=== PATIENT | male | born 1975 | race Caucasian/White ===

== ENCOUNTER 2019-02-27 01:43 | Inpatient (IN) ==
[2019-02-27] MEDS ORDERED: LORazepam 2 MG/4 ML VIAL IV STA (01:59)
[2019-02-27] MEDS ORDERED: ONDANSETRON INJ 2 MG/ML 2 ML VIAL ONE (02:55)
[2019-02-27] MEDS ORDERED: HYDROmorphone INJ 1 MG/ML SYRINGE ONE ×2 (02:55→04:32)
[2019-02-27] MEDS ORDERED: HYDROmorphone INJ 0.5 MG/0.5 ML SYR ONE (03:32)
[2019-02-27 04:01] LABS: Alanine Aminotransferase 86 U/L (12-78); Albumin Globulin Ratio 0.9 (0.9-2); Albumin Level 3.8 gm/dl (3.4-5.0); Alkaline Phosphatase 86 U/L (45-117); Aspartate Aminotransferase 59 U/L (15-37); BUN Creatinine Ratio 13.4 (10-20); Bilirubin,Total 0.4 mg/dl (0.2-1); Blood Urea Nitrogen 14 mg/dl (7-18); Calcium 8.7 mg/dl (8.5-10.1); Carbon Dioxide 28 mmol/L (21-32); Chloride 104 mmol/L (98-107); Creatinine Clr Calc Pharmacy 118.8 ml/min; Est GFR (African American) 100.7; Est GFR (Non-African American) 86.9; Globulin 4.4 gm/dl (2.5-4.0); Glucose 124 mg/dl (70-99); Potassium 3.7 mmol/L (3.5-5.1); Sodium 139 mmol/L (136-145); Total Protein 8.2 gm/dl (6.4-8.2); Troponin I < 0.015 ng/ml (0-0.045)
[2019-02-27 04:02] LABS: Basophils # (auto) 0.02 K/uL (0-0.2); Basophils % (auto) 0.2 %; Eosinophils # (auto) 0.38 K/uL (0-0.5); Hematocrit (blood only) 46.9 % (42-52); Hemoglobin 15.6 g/dL (14.0-18.0); Immature Granulocytes % (auto) 0.8 %; Lipase 38645 U/L (73-393); Lymphocytes # (auto) 4.05 K/uL (1.2-3.4); Lymphocytes % (auto) 31.7 %; Mean Corpuscular Hemoglobin 29.1 pg (25-34); Mean Corpuscular Hgb Conc 33.3 g/dL (32-36); Mean Corpuscular Volume 87.5 fL (80-100); Monocytes # (auto) 0.85 K/uL (0.11-0.59); Monocytes % (auto) 6.7 %; Neutrophils # (auto) 7.38 K/uL (1.4-6.5); Neutrophils % (auto) 57.6 %; Platelet Count 239 K/uL (130-400); RDW Coefficient of Variation 13.5 % (11.5-14.5); RDW Standard Deviation 43.2 fL (36.4-46.3); Red Blood Count 5.36 M/uL (4.7-6.1); White Blood Count 12.78 K/uL (4.8-10.8)
[2019-02-27] MEDS ORDERED: HYDROmorphone INJ 0.5 MG/0.5 ML SYR IV STA (04:29)
[2019-02-27] MEDS ORDERED: HYDROmorphone INJ 1 MG/ML SYRINGE IV STA (04:30)
[2019-02-27] MEDS ORDERED: OPTIRAY 320 125ml IV PRN (04:44)
[2019-02-27] MEDS ORDERED: ACETAMINOPHEN 325 MG TAB PO PRN (06:08)
[2019-02-27] MEDS ORDERED: HYDROmorphone INJ 0.5 MG/0.5 ML SYR IV PRN (06:08)
--- NOTE | 2019-02-27 06:09 | History and Physical Report ---
DATE OF ADMISSION: 02/27/2019 CHIEF COMPLAINT: Abdominal pain radiating to back. 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 As per the ER Dissection studies were done was done which was unremarkable except showing gallstones and his lipase came elevated at 38,000. He received Dilaudid and 2 mg of IV Ativan. Currently, somewhat sleepy, but still complains of significant abdominal pain. Had 1 episode of vomiting in the ER. He says he is not a heavy drinker, drinks like 1 or 2 drinks probably once a week, sometimes not. Quit smoking a few years ago. Never had this kind of pain in the past. Hemodynamics are stable. Denies any headache, no dizziness, no blurred visions, no earache, no runny nose, no sore throat, no difficulty swallowing, no chest pain, was short of breath when he was having pain. No cough, no fever, no chills. Otherwise sleeps okay. No recent weight gain, weight loss. Normal bowel and bladder movements. No hematuria or burning micturition, no hematochezia. No swelling in the legs, no rash. Otherwise, is active. ALLERGIES: No known drug allergies. PAST MEDICAL HISTORY: As mentioned above. PAST SURGICAL HISTORY: Revised horizontal eye muscle. MEDICATIONS: Currently none. FAMILY HISTORY: Significant for father had brain cancer, mother has bipolar disorder, aunt has colon cancer, father has pancreatic cancer, paternal grandmother had brain cancer, uncle has prostate cancer, another uncle has malignant melanoma, paternal grandmother has type 2 diabetes, and maternal grandfather has [place]. SOCIAL HISTORY: . Former smoker, quit smoking few years ago. Alcohol, 1 or 2 drinks over the weekends. No drug use. REVIEW OF SYSTEMS: As per HPI. Rest of the review of systems negative. PHYSICAL EXAMINATION: GENERAL: The patient is obese. In pain. VITAL SIGNS: Temperature 36.5, pulse 77, respiratory rate 22, blood pressure 167/105, oxygen 97% on room air. HEENT: No pallor, no icterus. Pupils are equal, round, and reactive to light. NECK: No JVD, no neck masses, no carotid bruits. CARDIOVASCULAR: S1, S2 heard, regular rate and rhythm, no murmur, no gallop. RESPIRATORY SYSTEM: Normal AP diameter. No accessory muscle use. No wheezing, no crackles. ABDOMEN: Soft, bowel sounds present. Diffuse abdominal tenderness, more in the epigastric region, mild guarding. No rigidity, no distention, no rebound tenderness. CENTRAL NERVOUS SYSTEM: Cranial nerves II-XII grossly intact. Nonfocal. EXTREMITIES: No edema, no erythema. LABORATORY DATA: WBC 12.7, hemoglobin 15.6, hematocrit 46.9, platelets 239. Sodium 139, potassium 3.7, chloride 104, bicarbonate 28, BUN 14, creatinine 1.04, serum glucose 124, calcium 8.7, total bilirubin 0.4, AST 59, ALT 86, alkaline phosphatase 86. Troponin I less than 0.015. Lipase 38,645. IMAGING DATA: Chest x-ray, no acute process seen. CAT scan results pending. EKG NSR with rate of &(. No significant change from previous EKG. ASSESSMENT AND PLAN: This is a 43-year-old male who presents with upper abdomen and lower chest pain radiating to the back and found to have an acute pancreatitis. 1. Abdominal pain, and lower chest pain radiating to the back, acute pancreatitis with elevated lipase at 38,000. Some gallstones in the CAT scan, we will wait for official report. We will also order gallbladder ultrasound. LFTs are okay. The patient is afebrile. Possibly gallstone pancreatitis. We will place him on IV aggressive fluids LR@200ml per hour and IV Dilaudid 0.5 mg p.o. q. 3 hours p.r.n., n.p.o. except meds and consult GI and general surgery in a.m. Monitor in the medical floor. 2. History of generalized anxiety disorder. The patient takes Ativan once or twice a week. Received 2 mg of Ativan in the ER. Will place him on Ativan PO p.r.n. 3. Deep venous thrombosis prophylaxis, sequential compression devices. DISPOSITION: Admit to medical floor. Level 1 full code. MTDD
--- NOTE | 2019-02-27 06:18 | Emergency Department Note ---
Entered by Aleksandar Coon acting as a scribe for Priscilla Peter DO History of Present Illness General Chief complaint: Chest Pain Stated complaint: CHEST PAIN, SOB Time Seen by Provider: 02/27/19 01:47 Source: patient History of Present Illness Onset (ago): hour(s) 1 Location: chest Pain Consistency: + constant Maximum Pain Intensity: 9 Associated symptoms: + other (Positive for SOB, upper abdominal pain, and roxanna sea. Negative for diarrhea and constipation.) The patient is a 43 year old male who presents to the emergency department with complaints of constant chest pain beginning an hour ago. The patient states that he has a history of anxiety. He notes that he developed chest pain an hour ago that woke him up. He reports that he was feeling fine before going to sleep. The patient states that he is also having upper abdominal pain that feels as though someone is pulling a belt tightly around him. He also complains of nausea and SOB. He notes that he was afraid to have a bowel movement this morning. He denies any diarrhea and constipation. He reports that he is experiencing more stress recently, and he states that he takes Ativan as needed. He notes that his mom had a heart attack a year ago. He reports that he does not use alcohol. Home Medications Home Medications Medication Instructions Recorded Confirmed Type lorazepam 0.5 mg PO BID PRN 02/27/19 02/27/19 History Allergies Allergy/AdvReac Type Severity Reaction Status Date / Time No Known Allergies Allergy Unverified 02/27/19 04:42 Past Med/Surg History Medical History Left arm pain (Acute) Left shoulder pain (Acute) Anxiety Family History Other Heart disease Myocardial infarction Social History Preferred Language: Malaysian Communication Ability: Effective Communication Ability Comment: sedated after iv pain meds in ed [place] Required: No Beliefs That Will Affect Care: None Current Living Situation: Spouse Other Information That Helps Us Care for You: No Feels Safe at Home: Yes Safety Concerns: Feels Safe At This Time Smoking Status: Current some day smoker Tobacco Type: cigarettes ; Cigarettes Per Day: 0.25 ; Do You Dip or Chew Tobacco: No ; Tobacco Cessation Education Requested by Patient: No Hx Alcohol Use: Yes Review of Systems See HPI for pertinent positives & negatives. and A total of 10 systems reviewed and were otherwise negative Physical Exam Vital Signs Vital Signs - 24 hr 02/27/19 01:44 02/27/19 01:56 02/27/19 01:59 Temperature 36.5 C Temperature Source Oral Sepsis Recent Fever Within 48 Hours No Sepsis Action Taken by Nursing No Action Required Pulse Rate 77 76 Pulse Rate from SpO2 Sensor 76 Pulse Rhythm Regular Pulse Strength Normal Respiratory Rate 22 15 Respiratory Effort / Characteristics Non-Labored Spontaneous Respiratory Depth Normal Respiratory Pattern Regular Blood Pressure 167/105 H Blood Pressure Mean 125 Blood Pressure Position Sitting Pulse Oximetry 98 97 97 Oxygen Delivery Method Room Air Room Air 02/27/19 02:00 02/27/19 02:15 02/27/19 02:26 Temperature Temperature Source Sepsis Recent Fever Within 48 Hours Sepsis Action Taken by Nursing Pulse Rate 76 74 Pulse Rate from SpO2 Sensor 76 Pulse Rhythm Pulse Strength Respiratory Rate 11 L 13 Respiratory Effort / Characteristics Respiratory Depth Respiratory Pattern Blood Pressure 146/97 H Blood Pressure Mean 113 Blood Pressure Position Pulse Oximetry 98 Oxygen Delivery Method 02/27/19 02:55 02/27/19 03:10 02/27/19 03:15 Temperature Temperature Source Sepsis Recent Fever Within 48 Hours Sepsis Action Taken by Nursing Pulse Rate 82 75 83 Pulse Rate from SpO2 Sensor 81 76 84 Pulse Rhythm Pulse Strength Respiratory Rate 18 8 L 14 Respiratory Effort / Characteristics Respiratory Depth Respiratory Pattern Blood Pressure 199/145 H 191/124 H 178/132 H Blood Pressure Mean 163 146 147 Blood Pressure Position Pulse Oximetry 95 90 97 Oxygen Delivery Method 02/27/19 03:31 02/27/19 03:46 02/27/19 04:37 Temperature Temperature Source Sepsis Recent Fever Within 48 Hours Sepsis Action Taken by Nursing Pulse Rate 73 73 62 Pulse Rate from SpO2 Sensor 74 71 65 Pulse Rhythm Pulse Strength Respiratory Rate 17 17 15 Respiratory Effort / Characteristics Respiratory Depth Respiratory Pattern Blood Pressure 189/109 H 124/88 142/108 H Blood Pressure Mean 135 100 119 Blood Pressure Position Pulse Oximetry 95 95 94 Oxygen Delivery Method General: Extremely anxious. HEENT: Head - normocephalic and atraumatic Pupils are equal, round, and reactive to light. Extraocular eye muscles are intact, and sclera are anicteric. Nose - moist nasal mucosa without discharge. Mouth - moist buccal mucosa. Oropharynx is nonerythematous and there is no tonsillar exudate or edema noted. Neck: Supple; no JVD, nuchal rigidity, cervical lymphadenopathy, or auscultated bruits. Heart: Regular rate and rhythm. There is a normal S1 and S2 with no murmurs, clicks, or gallops appreciated. Lungs: Clear to auscultation bilaterally with no wheezes, rales, or rhonchi. Abdomen: Soft, mild tenderness to palpation in the epigastrium, nondistended, w ith good bowel sounds. There are no palpable pulsatile masses or hepatosplenomegaly. There is no guarding, rigidity, or rebound noted. Extremities: No evidence of cyanosis, clubbing, or edema. There are easily palpable peripheral pulses. Skin: warm and dry with good turgor and no rashes. Course 0150: The patient was evaluated in room B10. A complete history and physical examination were performed. Nursing notes and previous electronic medical records were reviewed. IV lock was established and labs were drawn as above. 0201: The patient was quite anxious on physical exam. Lorazepam 2mg in 4 mls @ 4 mls/min IV 0227: I reevaluated and updated the patient. He is having severe epigastric pain that is radiating through to his back. He is also sweating. A second IV lock was initiated. The patient will go emergently for CT scan of the chest, abdomen, and pelvis to rule out aortic dissection. 0252: The patient vomited while in CT. He is now nauseated and still having epigastric pain. 0307: Hydromorphone HCl 1mg IV, Ondansetron 4mg IV 0317: I rechecked the patient. He is sleeping. He is hemodynamically stable. I reviewed the results of the CT scan laboratory studies with the patient's . 0324: Upon reevaluation, the patient is stable. I discussed the findings and the treatment plan with the patient. He expresses agreement and understanding. I spoke with Dr. Ortiz of the [facility]. The patient will be evaluated for further management. The patient requested additional IV analgesia. 0326: I reevaluated and updated the patient. He is having more pain. He is getting another dose of Dilaudid. 0332: Hydromorphone HCl 0.5mg IV 0439: Hydromorphone HCl 1mg IV Consultations Consultation #1: I [facility] the [facility] He will evaluate the patient for further management. Time: 03:24 Administered Medications Discontinued Medications Hydromorphone HCl (Dilaudid) Confirm Administered Dose 1 mg .ROUTE .STK-MED ONE Stop: 02/27/19 02:56 Last Admin: 02/27/19 06:13 Dose: Not Given Documented by: [id number] Hydromorphone HCl (Dilaudid) Confirm Administered Dose 0.5 mg .ROUTE .STK-MED ONE Stop: 02/27/19 03:33 Last Admin: 02/27/19 06:13 Dose: Not Given Documented by: [id number] Hydromorphone HCl (Dilaudid) 0.5 mg IV NOW STA Stop: 02/27/19 04:30 Last Admin: 02/27/19 04:31 Dose: Not Given Documented by: [id number] Hydromorphone HCl (Dilaudid) 1 mg IV NOW STA Stop: 02/27/19 04:31 Last Admin: 02/27/19 04:39 Dose: 0.5 mg Documented by: [id number] Hydromorphone HCl (Dilaudid) Confirm Administered Dose 1 mg .ROUTE .STK-MED ONE Stop: 02/27/19 04:33 Last Admin: 02/27/19 05:12 Dose: Not Given Documented by: [id number] Lorazepam (Ativan) 2 mg in 4 mls @ 4 mls/min IV NOW STA Stop: 02/27/19 02:00 Last Admin: 02/27/19 02:01 Dose: 4 mls/min Documented by: [id number] Ioversol (Optiray 320 125ml) 125 ml IV ONCE PRN PRN Reason: Interaction Checking Stop: 03/03/19 04:43 Last Admin: 02/27/19 04:44 Dose: 119 ml Documented by: [id number] Ondansetron HCl (Zofran) Confirm Administered Dose 4 mg .ROUTE .STK-MED ONE Stop: 02/27/19 02:56 Last Admin: 02/27/19 06:13 Dose: Not Given Documented by: [id number] Medical Decision Making Differential Diagnosis Differential diagnoses include: anxiety, acute coronary syndrome, aortic dissection, and pancreatitis. Medical Records Attestation: I reviewed the patient's medical records. Home Medications Current Medication List: was personally reviewed by me Laboratory Data Attestation: I reviewed the patient's lab results. Result diagrams: 02/27/19 02:05 02/27/19 02:05 Lab Results 02/27/19 02/27/19 Range/Units 02:05 02:05 WBC 12.78 H (4.8-10.8) K/uL RBC 5.36 (4.7-6.1) M/uL Hgb 15.6 (14.0-18.0) g/dL Hct 46.9 (42-52) % MCV 87.5 (80-100) fL MCH 29.1 (25-34) pg MCHC 33.3 (32-36) g/dL RDW Std Deviation 43.2 (36.4-46.3) fL RDW Coeff of Jose 13.5 (11.5-14.5) % Plt Count 239 (130-400) K/uL MPV 10.0 (7.4-10.4) fL Immature Gran % (Auto) 0.8 % Neut % (Auto) 57.6 % Lymph % (Auto) 31.7 % [place] % (Auto) 6.7 % Eos % (Auto) 3.0 % Baso % (Auto) 0.2 % Immature Gran # (Auto) 0.10 H (0.00-0.02) K/uL Neut # (Auto) 7.38 H (1.4-6.5) K/uL Lymph # (Auto) 4.05 H (1.2-3.4) K/uL [place] # (Auto) 0.85 H (0.11-0.59) K/uL Eos # (Auto) 0.38 (0-0.5) K/uL Baso # (Auto) 0.02 (0-0.2) K/uL Sodium 139 (136-145) mmol/L Potassium 3.7 (3.5-5.1) mmol/L Chloride 104 (98-107) mmol/L Carbon Dioxide 28 (21-32) mmol/L Anion Gap 7.0 (3-11) BUN 14 (7-18) mg/dl Creatinine 1.04 (0.6-1.4) mg/dl Est Cr Clr Drug Dosing 118.8 ml/min Est GFR ( Amer) 100.7 Est GFR (Non-Af Amer) 86.9 BUN/Creatinine Ratio 13.4 (10-20) Glucose 124 H (70-99) mg/dl Calcium 8.7 (8.5-10.1) mg/dl Total Bilirubin 0.4 (0.2-1) mg/dl AST 59 H (15-37) U/L ALT 86 H (12-78) U/L Alkaline Phosphatase 86 (45-117) U/L Troponin I < 0.015 (0-0.045) ng/ml Total Protein 8.2 (6.4-8.2) gm/dl Albumin 3.8 (3.4-5.0) gm/dl Globulin 4.4 H (2.5-4.0) gm/dl Albumin/Globulin Ratio 0.9 (0.9-2) Lipase 72949 H (73-393) U/L Imaging Data Attestation: I personally reviewed and interpreted this imaging study as follows: My Impression: CHEST X-RAY: Narrow mediastinum. No cardiomegaly. No pulmonary findings. Radiologist's Impression: Radiology results as stated below per my review and the radiologist's interpretation: CTA CHEST: Cholelithiasis. No definite acute cholecystitis. No biliary ductal dilation. No appendicitis, colitis, diverticulitis, or bowel obstruction. No free air or free fluid, Pancreas and kidneys are unremarkable. Radiologist: Darrell Stack MD. CTA ABDOMEN & PELVIS WWO Contrast: No acute or inflammatory disease or bowel obstruction. No appendicitis, inflammatory changes of bowel or bowel obstruction. No free fluid. No free air. Aorta, liver, spleen, pancreas, gallbladder, and kidneys are unremarkable. Radiologist: Darrell Stack MD. ECG Data Attestation: I personally reviewed and interpreted this ECG as follows: Indication: chest pain Rate (beats per minute): 79 Comparison ECG Date: from (01/13/2014) Change: no significant change Additional Comments: No ischemia, no ectopy. Blood Pressure Blood Pressure Findings: Elevated blood pressure Blood Pressure Disposition: further management by hospitalist DEVIKA Marie The patient is a 43 year old male who presents to the emergency department with complaints of constant chest pain/epigastric pain beginning an hour ago. The patient has a history of anxiety and began to hyperventilate while experiencing some chest and epigastric discomfort. The patient had a normal-appearing EKG and negative troponin. However, he continued to complain of epigastric discomfort that seem to get worse and radiate through to his back. He was sent for CT scan of the chest and abdomen/pelvis. To rule out aortic dissection. This was negative for dissection but there was gallstones noted. The patient had a lipase greater than 30,000. His presentation seems consistent with acute gallstone pancreatitis. The patient's pain was controlled with IV Dilaudid. I discussed the case with the hospitalist and they will evaluate for further management. Impression & Plan Pancreatitis, Chest pain Discharge Plan Visit Data *Final* Discharge Date/Time: 02/27/19 05:46 Chief Complaint: Chest Pain Stated Complaint: CHEST PAIN, SOB ED Provider: Priscilla Peter Discharge Problem: Pancreatitis, Chest pain Patient Disposition: Admitted As Inpatient Discharge Instructions Interventions: ED Discharge Assessment Last Done: 02/27/19 05:46 The scribe's documentation has been prepared under my direction and personally reviewed by me in its entirety. I confirm that the note above accurately reflect s all work, treatment, procedures, and medical decision making performed by me.
[2019-02-27] MEDS: LACTATED RINGER'S 1,000 ML IV SCH ×4 (06:30→23:28)
--- NOTE | 2019-02-27 07:27 | XRay Report ---
XR chest 1V portable HISTORY: Atypical Chest Pain COMPARISON: None. FINDINGS: The lungs are clear. Cardiac silhouette is normal in size. No pleural effusions. No pneumot horax. IMPRESSION: No acute process. Electronically signed by: Danyel Ferro M.D. 02/27/2019 7:26 AM
--- NOTE | 2019-02-27 07:58 | CT Scan Report ---
CT ANGIOGRAPHY THE CHEST WITHOUT AND WITH CONTRAST CLINICAL HISTORY: Chest and abdominal pain. Possible aortic dissection. COMPARISON STUDY: Chest x-ray dated 02/27/2019 TECHNIQUE: Unenhanced images were initially obtained through the thorax. Following the IV administrat ion of 119 mL of Optiray-320, CT angiography of the thorax was performed from the thoracic inlet to t he lung bases. Images are reviewed in the axial, sagittal, and coronal planes. IV contrast was admini stered without complication. A dose lowering technique was utilized adhering to the principles of AL JON. MIP images were acquired. CT DOSE: FINDINGS: Thyroid: Imaged portions of the thyroid gland are normal in appearance. Thoracic aorta: There is no evidence of acute thoracic aortic hematoma. There is no evidence of aorti c aneurysm or dissection. Pulmonary vasculature: There are no pulmonary artery filling defects to indicate acute pulmonary embo lism. HEART: The heart is normal in size and configuration, without pericardial effusion. Lungs and pleural spaces: There are no pleural effusions. There is no pneumothorax. There are depende nt atelectatic changes. There are no airspace consolidation suspicious for pneumonia. Mediastinum: There is no evidence of pathologic mediastinal lymphadenopathy. Amisha: There is no evidence of pathologic hilar adenopathy. Axilla: There is no evidence of pathologic axillary lymphadenopathy. Upper abdomen: Partially visualized upper abdominal viscera is within normal limits. Skeletal structures: There are no lytic or blastic osseous lesions. IMPRESSION: 1. No evidence of thoracic aortic aneurysm or dissection 2. No evidence of acute pulmonary embolism 3. No evidence of focal pulmonary consolidation Electronically signed by: Michael Restrepo M.D. 02/27/2019 7:57 AM
--- NOTE | 2019-02-27 08:09 | CT Scan Report ---
CT angio abd pelvis wo/w con CT DOSE: CLINICAL HISTORY: Severe abdominal pain. Possible aortic dissection. TECHNIQUE: Unenhanced images were obtained through the abdomen and pelvis. CT angiography was then pe rformed a dynamic helical fashion during intravenous administration of 119 cc of Optiray 320. MIP michael ges were acquired. A dose lowering technique was utilized adhering to the principles of ALARA. COMPARISON STUDY: None. FINDINGS: Visualized portions of the lung bases are unremarkable. No hepatic masses are visualized. There is cholelithiasis. There is equivocal pericholecystic edema. Clinical correlation regards to ac keren cholecystitis is recommended. There is a cystic structure adjacent the gallbladder neck and media l to the common bile duct. This could represent a dilated cystic duct or choledochocyst. No pancreatic masses are visualized. There is minimal peripancreatic stranding. Clinical correlation regards to acute pancreatitis is recommended. No splenic masses are visualized. Neither adrenal gland is pathologically enlarged. No renal masses are visualized in this arterial phase study. There are no transition zones indicate bowel obstruction. There is colonic diverticulosis. There is n o acute diverticulitis. There is no evidence of acute appendicitis. There is no evidence for abdominal aortic aneurysm or dissection. 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 There is no evidence for superior is enteric artery stenosis. There is no evidence for renal artery s tenosis. There is no evidence for iliac artery stenosis. The inferior mesenteric artery is patent. There are small fat-containing inguinal hernias. IMPRESSION: 1. No evidence of abdominal aortic aneurysm or dissection 2. 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 Cholelithiasis and minimal pericholecystic infiltration. Clinical correlation regards to acute cho lecystitis is recommended 4. Subtle peripancreatic infiltration. Clinical correlation regards to acute pancreatitis is recommen ded 5. Cystic structure located adjacent to the gallbladder neck and common bile duct. Likely diagnostic considerations include a dilated cystic duct or choledochal cyst. 7. No evidence of bowel obstruction. No evidence of free air. 6. This report will be called to the floor given the discrepancies when compared with the preliminary interpretation. Electronically signed by: Michael Restrepo M.D. 02/27/2019 8:07 AM
--- NOTE | 2019-02-27 08:30 | Surgery Consultation ---
Date of Consultation February 27, 2019 Assessment & Plan (1) Pancreatitis: Likely biliary. LFTs essentially normal, will continue to trend. Eventual lap moriah when pancreatitis resolves. Supervising Physician Co-Signing Physician Notes 43-year-old male admitted with gallstone pancreatitis. He is feeling a little bit better today than he did this morning. No prior episodes. Of note on a CT scan and ultrasound there is concern for possible choledochal cyst. MRCP is pending. At this point we will continue IV fluids and n.p.o. We would recommend cholecystectomy during this hospital stay or in short interval, however if it is determined that he does have a choledochal cyst he likely needs an ERCP with brushings and would possibly need hepatobiliary surgery consult. Surgery will follow. History of Present Illness Attending Physician: Rigo Vincent MD History of Present Illness 43 y/o male awoke at midnight with severe epigastric pain, nausea, mid-scapular pain. Feels bloated, no vomiting. No history of biliary disease. Has 1-2 beers per week. Allergies Allergy/AdvReac Type Severity Reaction Status Date / Time No Known Allergies Allergy Unverified 02/27/19 04:42 Home Medications Home Medications Medication Instructions Recorded Confirmed Type lorazepam 0.5 mg PO BID PRN 02/27/19 02/27/19 History Patient History Medical History Left arm pain (Acute) Left shoulder pain (Acute) Anxiety Family History Other Heart disease Myocardial infarction Social History Preferred Language: Mexican Communication Ability: Effective Communication Ability Comment: sedated after iv pain meds in ed Costumer Required: No Beliefs That Will Affect Care: None Current Living Situation: Spouse Other Information That Helps Us Care for You: No Feels Safe at Home: Yes Safety Concerns: Feels Safe At This Time Smoking Status: Current some day smoker Tobacco Type: cigarettes ; Cigarettes Per Day: 0.25 ; Do You Dip or Chew Tobacco: No ; Tobacco Cessation Education Requested by Patient: No Hx Alcohol Use: Yes Review of Systems Constitutional: no fever and no chills Gastrointestinal: + abdominal pain, + bloating and + nausea; no vomiting Physical Exam Constitutional: WD/WN, vitals as above Respiratory: normal respiratory effort, lungs clear to auscultation Cardiovascular: RRR, no murmur, no edema Gastrointestinal (Abdomen): Inspection/Auscultation: + abdomen distended Percussion/Palpation: + abdomen tender (epigastric) and abdomen soft Results & Data Vital Signs (Past 12 Hours) Vital Signs Temp Pulse Pulse Resp BP BP Pulse Ox 02/27/19 07:30 36.9 C 82 16 152/101 H 97 02/27/19 05:57 36.7 C 71 16 176/114 H 95 02/27/19 05:46 66 18 183/110 H 92 02/27/19 04:45 63 16 150/111 H 98 02/27/19 04:37 62 15 142/108 H 94 02/27/19 03:46 73 17 124/88 95 02/27/19 03:31 73 17 189/109 H 95 02/27/19 03:15 83 14 178/132 H 97 02/27/19 03:10 75 8 L 191/124 H 90 02/27/19 02:55 82 18 199/145 H 95 02/27/19 02:26 146/97 H 02/27/19 02:15 74 13 02/27/19 02:00 76 11 L 98 02/27/19 01:59 76 15 97 02/27/19 01:56 97 02/27/19 01:44 36.5 C 77 22 167/105 H 98 PG Care Time/CCT Total # of Minutes Spent Total Time Spent with Patient: Total time spent is greater than 50% in coordination of care (as documented) at patient's floor/unit and/or counseling patient: (1) Pancreatitis Acute pancreatitis complication: unspecified Chronicity: acute Pancreatitis type: unspecified pancreatitis type Qualified Code(s): K85.90 - Acute pancreati tis without necrosis or infection, unspecified
[2019-02-27 08:54] LABS: Albumin Globulin Ratio 0.9 (0.9-2); Albumin Level 4.2 gm/dl (3.4-5.0); BUN Creatinine Ratio 11.3 (10-20); Bilirubin,Total 0.5 mg/dl (0.2-1); Calcium 9.1 mg/dl (8.5-10.1); Creatinine Clr Calc Pharmacy 114.9 ml/min; Est GFR (African American) 97.3; Globulin 4.4 gm/dl (2.5-4.0); Total Protein 8.6 gm/dl (6.4-8.2)
[2019-02-27] MEDS: HYDROmorphone INJ 1 MG/ML SYRINGE IV PRN ×4 (09:10→22:11)
[2019-02-27] MEDS ORDERED: INFLUENZA ADMINISTRATION CHARGE ONE (09:30)
[2019-02-27] MEDS ORDERED: INFLUENZA VIRUS QUAD VACCINE 0.5 ML SYR IM ONE (09:30)
--- NOTE | 2019-02-27 09:40 | Gastrointestinal Consultation ---
Date of Consultation February 27, 2019 Supervising Physician Co-Signing Physician Notes Attending attestation-late entry I have seen, examined this patient, and agree with the findings and above by our mid-level provider SEEMA Jacobson, with the following additions -Likely gs pancreatitis, MRI -IVF at least at 250cc/hr -IV pain control -Surgery Consult History of Present Illness Reason for Consultation: Mr. Vern Reeder is a 43 yr old male pt of Dr. 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 GI is consulted for pancreatitis. Mr. Reeder reports a sudden onset of upper abdomen/pain waking him from sleep last night. With this, he had nausea, vomiting and chills. He denies any jaundice, icterus, pruritis, dark urine. He rarely drinks alcohol (about 2/month) and is not a smoker. He denies any similar previous episodes of pain. On arrival, Lipase was elevated at 38k and transaminases were elevated ALT 86 AST 59 Bili and alk phos remain normal. CT on arrival with gallstones, mild pericholecystic fluid, subtle peripancreatic infiltration. The CT was done He The pain continues, improved with narcotic IVs but returns to severe at that end of the dosing interval. Attending Physician: Rigo Vincent MD Allergies Allergy/AdvReac Type Severity Reaction Status Date / Time No Known Allergies Allergy Unverified 02/27/19 04:42 Home Medications Home Medications Medication Instructions Recorded Confirmed Type lorazepam 0.5 mg PO BID PRN 02/27/19 02/27/19 History Patient History Medical History Left arm pain (Acute) Left shoulder pain (Acute) Anxiety Family History Other Heart disease Myocardial infarction Social History Preferred Language: Malawian Communication Ability: Effective Communication Ability Comment: sedated after iv pain meds in ed Slot Manager Required: No Beliefs That Will Affect Care: None Current Living Situation: Spouse Other Information That Helps Us Care for You: No Feels Safe at Home: Yes Safety Concerns: Feels Safe At This Time Smoking Status: Current some day smoker Tobacco Type: cigarettes ; Cigarettes Per Day: 0.25 ; Do You Dip or Chew Tobacco: No ; Tobacco Cessation Education Requested by Patient: No Hx Alcohol Use: Yes Review of Systems Constitutional: + chills and + sweats; no fever and no weakness Eyes: no problem reported Ear, Nose, Mouth, Throat: no problem reported Respiratory: no cough, no dyspnea and no wheezing Cardiovascular: no chest pain, no palpitations, no syncope and no edema Gastrointestinal: + abdominal pain, + nausea and + vomiting Musculoskeletal: + back pain Integumentary: no change in skin color Neurologic: no gait abnormality, no unsteadiness and no falls Psychiatric: + anxiety (may have had a panic attack with the pain last night); no depression Endocrine: no fatigue, no polydipsia, no polyphagia and no polyuria Hematologic / Lymphatic: no easy bleeding and no easy bruising Allergy / Immunological: no GI upset with certain foods Physical Exam Constitutional: WD/WN, vitals as above Eyes: PERRL, conjunctivae normal, anicteric sclerae ENMT: external ear and nose normal, oropharynx normal Neck: trachea midline, no thyromegaly Respiratory: normal respiratory effort, lungs clear to auscultation Cardiovascular: RRR, no murmur, no edema Gastrointestinal (Abdomen): Inspection/Auscultation: + hypoactive bowel sounds Percussion/Palpation: + abdomen tender (very, over the upper abdomen); abdomen not rigid and abdomen not firm Musculoskeletal: no cyanosis or clubbing, extremities motor strength 5/5 Skin: no rashes, warm and dry no jaundice Neurologic: PERRL, EOMI, accommodation nl, no face palsy, no dysarthria Psychiatric: A+Ox3, euthymic affect Lymphatic: no cervical or axillary lymphadenopathy Results & Data Vital Signs (Past 12 Hours) Vital Signs Temp Pulse Pulse Resp BP BP Pulse Ox 02/27/19 07:30 36.9 C 82 16 152/101 H 97 02/27/19 05:57 36.7 C 71 16 176/114 H 95 02/27/19 05:46 66 18 183/110 H 92 02/27/19 04:45 63 16 150/111 H 98 02/27/19 04:37 62 15 142/108 H 94 02/27/19 03:46 73 17 124/88 95 02/27/19 03:31 73 17 189/109 H 95 02/27/19 03:15 83 14 178/132 H 97 02/27/19 03:10 75 8 L 191/124 H 90 02/27/19 02:55 82 18 199/145 H 95 02/27/19 02:26 146/97 H 02/27/19 02:15 74 13 02/27/19 02:00 76 11 L 98 02/27/19 01:59 76 15 97 02/27/19 01:56 97 02/27/19 01:44 36.5 C 77 22 167/105 H 98 Laboratory Results Hb 15, Hct 46, Cr 1.07 UA 1. Stone filled gallbladder with borderline gallbladder wall thickening 2. No evidence of ductal dilatation 3. Nondiagnostic evaluation the pancreas 4. Nonspecific 22 x 18 x 16 mm cystic structure adjacent to the gallbladder neck. This corresponds to the cystic lesion visualized on CT scanning. A choledochal cyst cannot be excluded. CTA: 1. No evidence of abdominal aortic aneurysm or dissection 2. 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 Cholelithiasis and minimal pericholecystic infiltration. Clinical correlation regards to acute cholecystitis is recommended 4. Subtle peripancreatic infiltration. Clinical correlation regards to acute pancreatitis is recommended 5. Cystic structure located adjacent to the gallbladder neck and common bile duct. Likely diagnostic considerations include a dilated cystic duct or choledochal cyst. 7. No evidence of bowel obstruction. No evidence of free air. 6. This report will be called to the floor given the discrepancies when compared with the preliminary interpretation. Diagnostic Findings Mr. Vern Reeder is a 43 yr old male with pain, elevated lipase, CT suggestive of mild pancreatitis. An imaging with gallstones. This most likely represents gallstone pancreatitis. His CTA suggests a cystic structure near the gallbladder neck/CBD. Well will need MRCP to r/o choledocholithiasis and choledochal cyst. LR at 250ml/hr. analgesics MRCP
--- NOTE | 2019-02-27 10:27 | Ultrasound Report ---
US gallbladder CLINICAL HISTORY: gall stones/pancreatitis COMPARISON STUDY: CT scan dated 02/27/2019 FINDINGS: The pancreas was not visualized. No focal hepatic masses were delineated. The gallbladder is stone filled. There is borderline gallbladder wall thickening (4 mm). The common bile duct measures 6 mm. There is a nonspecific 22 x 18 x 16 mm cystic structure adjacent to the gallbladder neck. IMPRESSION: 1. Stone filled gallbladder with borderline gallbladder wall thickening 2. No evidence of ductal dilatation 3. Nondiagnostic evaluation the pancreas 4. Nonspecific 22 x 18 x 16 mm cystic structure adjacent to the gallbladder neck. This corresponds to the cystic lesion visualized on CT scanning. A choledochal cyst cannot be excluded. Electronically signed by: Michael Restrepo M.D. 02/27/2019 10:25 AM
--- NOTE | 2019-02-27 16:08 | Magnetic Resonance Report ---
MRCP CLINICAL HISTORY: pancreatitis, ? Choledochal cyst on CTA TECHNIQUE: Utilizing a 1.5 Gabby magnet and dedicated coil, multiplanar, multiecho imaging of the upp er abdomen was performed utilizing heavily T2 weighted pulsing sequences without IV contrast. COMPARISON STUDY: CTA of the abdomen and pelvis and right upper quadrant ultrasound February 27, 2019 . FINDINGS: Peripancreatic infiltration and fluid extending into the mesentery and the anterior pararen al spaces has significantly increased since CTA performed earlier today. No peripancreatic fluid altagracia ection is present. The course and caliber of the main pancreatic duct is normal. There is no intra or extrahepatic biliary ductal dilatation. No common bile duct calculi are identified. Numerous gallsto [place] are noted within the gallbladder. No pericholecystic infiltration is present. Note is again made of a 2.4 x 1.7 cm cystic focus located adjacent to the gallbladder neck. This corresponds to the find ing on CT performed earlier today. This appears to communicate with the gallbladder and the distal cy stic duct. This favors cystic dilatation of the cystic duct. Liver morphology is normal. No hepatic l esions are identified on this unenhanced exam. There are trace bilateral pleural effusions. Unenhance d images of the spleen, adrenal glands and kidneys are unremarkable. IMPRESSION: 1. Significant increase in peripancreatic infiltration and fluid extending into the mesentery and ant erior pararenal spaces consistent with acute pancreatitis. 2. No biliary ductal dilatation. No common bile duct calculi. 3. Cholelithiasis. No pericholecystic infiltration or fluid. 4. 2.4 x 1.7 cm cystic focus located anterior to the gallbladder neck which corresponds to the findin g on CT. This favors cystic dilatation of a portion of the cystic duct and raises the possibility of a type choledochal cyst. Electronically signed by: Eddi Petit M.D. 02/27/2019 4:07 PM
[2019-02-27] MEDS: LORazepam 0.5 MG TAB PO PRN (21:15)
--- NOTE | 2019-02-27 21:56 | Hospitalist Progress Note ---
Date of Service February 27, 2019 Assessment & Plan (1) Pancreatitis: Biochemical and radiographic findings consistent with acute pancreatitis. No heavy alcohol consumption. Triglycerides normal. Found to have cholelithiasis on imaging, but no apparent choledocholithiasis. Most likely etiology gallstone pancreatitis. GI and General Surgery consulted. Continue bowel rest, IV fluids, analgesics, antiemetics. (2) Cholelithiasis: As discussed above. (3) Biliary cyst: Further evaluation/management per GI and General Surgery. (4) Elevated blood pressure reading: Episodic elevations of blood pressure probably secondary to discomfort and/or anxiety. Antihypertensive therapy not indicated at this time. Follow. (5) DVT prophylaxis: No anticoagulants at this time in case any invasive procedures are necessary. SCDs. Ambulate. (6) Discharge planning issues: Anticipated discharge home. Family Medicine follow-up with Dr. Tavo Chairez. Subjective Recheck for pancreatitis. Patient seen in their room around 1330. Abdominal pain somewhat better, improved after receiving IV hydromorphone. No further nausea or vomiting. No diarrhea, melena, hematochezia. Review of Systems: Constitutional- no fever. Cardiac- no chest pain. Pulmonary- no cough or SOB. GI- as noted above. - Otherwise, as noted above. Physical Exam Constitutional: no acute distress Respiratory: no respiratory distress Auscultation: lungs clear to auscultation bilaterally Cardiovascular: Rate/Rhythm: regular rate and regular rhythm Heart Sounds: no gallop, no murmur and no cardiac rub Vessels: no JVD Extremities: no calf tenderness and no edema Gastrointestinal (Abdomen): Inspection/Auscultation: + abdomen distended; + abnormal bowel sounds (quiet) Percussion/Palpation: + abdomen tender (moderate epigastric tenderness with some guarding) Skin: no rashes, warm and dry Psychiatric: Orientation: alert (a bit somnolent after receiving hydrom orphone) and oriented x 3 Results & Data Vital Signs (Past 12 Hours) Vital Signs Temp Pulse Resp BP Pulse Ox 02/27/19 15:54 36.6 C 81 18 172/97 H 97 Laboratory Results Laboratory Results - last 24 hr 02/27/19 02/27/19 02/27/19 02:05 02:05 07:58 WBC 12.78 H RBC 5.36 Hgb 15.6 Hct 46.9 MCV 87.5 MCH 29.1 MCHC 33.3 RDW Std Deviation 43.2 RDW Coeff of Jose 13.5 Plt Count 239 MPV 10.0 Immature Gran % (Auto) 0.8 Neut % (Auto) 57.6 Lymph % (Auto) 31.7 [place] % (Auto) 6.7 Eos % (Auto) 3.0 Baso % (Auto) 0.2 Immature Gran # (Auto) 0.10 H Neut # (Auto) 7.38 H Lymph # (Auto) 4.05 H [place] # (Auto) 0.85 H Eos # (Auto) 0.38 Baso # (Auto) 0.02 Sodium 139 137 Potassium 3.7 Chloride 104 105 Carbon Dioxide 28 25 Anion Gap 7.0 7.0 BUN 14 12 Creatinine 1.04 1.07 Est Cr Clr Drug Dosing 118.8 114.9 Est GFR ( Amer) 100.7 97.3 Est GFR (Non-Af Amer) 86.9 84.0 BUN/Creatinine Ratio 13.4 11.3 Glucose 124 H 137 H Calcium 8.7 9.1 Total Bilirubin 0.4 0.5 AST 59 H ALT 86 H 160 H Alkaline Phosphatase 86 84 Troponin I < 0.015 Total Protein 8.2 8.6 H Albumin 3.8 4.2 Globulin 4.4 H 4.4 H Albumin/Globulin Ratio 0.9 0.9 Triglycerides 146 [address]ase [address] ABDOMEN + PELVIS IMPRESSION: 1. No evidence of abdominal aortic aneurysm or dissection 2. 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 Cholelithiasis and minimal pericholecystic infiltration. Clinical correlation regards to acute cholecystitis is recommended 4. Subtle peripancreatic infiltration. Clinical correlation regards to acute pancreatitis is recommended 5. Cystic structure located adjacent to the gallbladder neck and common bile duct. Likely diagnostic considerations include a dilated cystic duct or choledochal cyst. 7. No evidence of bowel obstruction. No evidence of free air. 6. This report will be called to the floor given the discrepancies when compared with the preliminary interpretation. Electronically signed by: Michael Restrepo M.D. 02/27/2019 8:07 AM US ABDOMEN IMPRESSION: 1. Stone filled gallbladder with borderline gallbladder wall thickening 2. No evidence of ductal dilatation 3. Nondiagnostic evaluation the pancreas 4. Nonspecific 22 x 18 x 16 mm cystic structure adjacent to the gallbladder neck . This corresponds to the cystic lesion visualized on CT scanning. A choledochal cyst cannot be excluded. Electronically signed by: Michael Restrepo M.D. 02/27/2019 10:25 AM (1) Pancreatitis Acute pancreatitis complication: unspecified Chronicity: acute Pancreatitis type: unspecified pancreatitis type Qualified Code(s): K85.90 - Acute pancreatitis without necrosis or infection, unspecified
[2019-02-27] MEDS: ONDANSETRON INJ 2 MG/ML 2 ML VIAL IV PRN (22:12)
[2019-02-28] MEDS: HYDROmorphone INJ 1 MG/ML SYRINGE IV PRN ×6 (03:10→23:30)
[2019-02-28] MEDS: LACTATED RINGER'S 1,000 ML IV SCH ×7 (03:13→23:09)
[2019-02-28 05:47] LABS: Hematocrit (blood only) 48.5 % (42-52); Hemoglobin 16.1 g/dL (14.0-18.0); Mean Corpuscular Hemoglobin 29.4 pg (25-34); Mean Corpuscular Hgb Conc 33.2 g/dL (32-36); Mean Corpuscular Volume 88.5 fL (80-100); Mean Platelet Volume 10.6 fL (7.4-10.4); Platelet Count 225 K/uL (130-400); RDW Coefficient of Variation 13.9 % (11.5-14.5); RDW Standard Deviation 45.1 fL (36.4-46.3); Red Blood Count 5.48 M/uL (4.7-6.1); White Blood Count 18.62 K/uL (4.8-10.8)
[2019-02-28 06:06] LABS: Albumin Level 3.4 gm/dl (3.4-5.0); BUN Creatinine Ratio 13.9 (10-20); Calcium 8.3 mg/dl (8.5-10.1); Creatinine Clr Calc Pharmacy 141.4 ml/min; Est GFR (African American) 121.7; Potassium 3.5 mmol/L (3.5-5.1)
[2019-02-28 06:14] LABS: Albumin Globulin Ratio 0.9 (0.9-2); Globulin 3.9 gm/dl (2.5-4.0); Total Protein 7.3 gm/dl (6.4-8.2)
--- NOTE | 2019-02-28 07:21 | Gastroenterology Progress Note ---
Date of Service February 28, 2019 Assessment & Plan (1) Pancreatitis: Etiology of pancreatitis likely gallstones. No increased alcohol, not a smoker (though remote hx), no elevated trigylcerides and no fam hx of pancreatitis. He does have a family hx of father who of pancreas cancer. 1. 1000L LR bolus, then return to 250cc/hr. 2. Pt reminded to do incentive spirometry hourly, walk and move around to prevent fluid pneumonia. 3 Check LFT, lipase, Hb, BUN/Cr tomorrow. 4. MRCP films viewed by Dr. Castillo with radiology - not clearly a choledochol cyst. 5. At this time, no indication for ERCP 6. Appreciate surgical input and expect eventual cholecystectomy . 7. Because of father's hx of pancreas cancer and pt's concern, it is very reasonable to consider OP EGD for high level imaging of the pancreas in 6-8 weeks, after acute inflammation is resolved. Present on Admission?: Yes Supervising Physician Co-Signing Physician Notes Attending attestation I have seen, examined this patient, and agree with the findings and above by our mid-level provider SEEMA Jacobson, with the following additions. - Pancreatitis is likely due to gallstones, I have reviewed the MRI carefully with radiology as well as Dr. Sanchez, its really unclear if this represents a choledochocyst vs a folded gallbladder. -Will require cholecystectomy and will defer to Dr. Sanchez appropriate setting and planning if should be performed by biliary surgeon who may be able to recon the CBD if necessary. - Continue IVF, pain control, appears better today, can likely start liquids this scarlet - will follow Subjective Mr. Vern Reeder is a 43 yr old male admitted on 02/27 for abdominal pain, imaging and elevated lipase consistent with gallstone pancreatitis. Leukocystosis noted today. Despite aggressive IV hydration, Hb is elevated today compared to yesterday. Transaminases were moderately elevated on arrival and decreasing. Bili and Alk phos remain normal. MRCP with worsening peripancreatic infiltration, a choledochol cyst at the cystic duct and no evidence of choledocholithiasis or bile duct dilation. Today: pt tells me that he feels better. Rates pain as 10 on arrival. At the end of the dosing interval yesterday and 8 and today a 5. No nausea/vomiting. Not passing flatus yet. No fevers. No sweats since prior to admission. Review of Systems Constitutional: + sweats (not since prior to admission) and + fatigue; no fever, no chills and no weight gain Eyes: no problem reported Ear, Nose, Mouth, Throat: no problem reported Respiratory: + problem reported (little with deep breaths); no cough, no dyspnea and no wheezing Cardiovascular: no chest pain, no palpitations, no syncope and no edema Gastrointestinal: + abdominal pain (upper abdomen), + bloating and + constipation; no nausea and no vomiting Genitourinary: no dysuria and no hematuria Musculoskeletal: + back pain (chronic, low grade, unchanged lower back discomfort); no neck pain Integumentary: no rash, no lesions and no change in skin color Neurologic: no unsteadiness, no falls and no tremor(s) Psychiatric: + anxiety (chronic, not worsened); no behavioral changes and no depression Endocrine: + polyuria (with IV hydration, since admission; urine light yellow); no cold intolerance and no heat intolerance Allergy / Immunological: no cough, no dyspnea, no rash and no problem reported Physical Exam Constitutional: WD/WN, vitals as above Eyes: PERRL, conjunctivae normal, anicteric sclerae ENMT: external ear and nose normal, oropharynx normal Neck: trachea midline, no thyromegaly Respiratory: normal respiratory effort, lungs clear to auscultation Cardiovascular: RRR, no murmur, no edema Gastrointestinal (Abdomen): Inspection/Auscultation: + abdomen distended (mild) and + hypoactive bowel sounds Percussion/Palpation: + abdomen tender (diffuse, upper abdomen) and abdomen soft Musculoskeletal: no cyanosis or clubbing, extremities motor strength 5/5 Skin: no rashes, warm and dry normal turgor; no rashes and no jaundice Neurologic: patellar DTR's 2+ bilat, sensation intact Psychiatric: A+Ox3, euthymic affect Lymphatic: no cervical or axillary lymphadenopathy Results & Data Vital Signs (Past 12 Hours) Vital Signs Temp Pulse Resp BP Pulse Ox 02/28/19 07:05 37.0 C 89 18 159/94 H 92 02/27/19 23:19 37.4 C 82 16 163/95 H 98 Laboratory Results WBC 12->18 Hb 15->16 Lipase 38k->1707. AST 59->40 ALT 43->246 Diagnostic Findings MRCP: 1. Significant increase in peripancreatic infiltration and fluid extending into the mesentery and anterior pararenal spaces consistent with acute pancreatitis. 2. No biliary ductal dilatation. No common bile duct calculi. 3. Cholelithiasis. No pericholecystic infiltration or fluid. 4. 2.4 x 1.7 cm cystic focus located anterior to the gallbladder neck which corresponds to the finding on CT. This favors cystic dilatation of a portion of the cystic duct and raises the possibility of a type choledochal cyst. CTA 1. No evidence of abdominal aortic aneurysm or dissection 2. 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 Cholelithiasis and minimal pericholecystic infiltration. Clinical correlation regards to acute cholecystitis is recommended 4. Subtle peripancreatic infiltration. Clinical correlation regards to acute pancreatitis is recommended 5. Cystic structure located adjacent to the gallbladder neck and common bile duct. Likely diagnostic considerations include a dilated cystic duct or choledochal cyst. 7. No evidence of bowel obstruction. No evidence of free air. 6. This report will be called to the floor given the discrepancies when compared with the preliminary interpretation. (1) Pancreatitis Acute pancreatitis complication: unspecified Chronicity: acute Pancreatitis type: unspecified pancreatitis type Qualified Code(s): K85.90 - Acute pancreatitis without necrosis or infection, unspecified
[2019-02-28] MEDS ORDERED: LACTATED RINGER'S 1,000 ML IV ONE (08:13)
--- NOTE | 2019-02-28 08:54 | Surgery Progress Note ---
Date of Service February 28, 2019 Assessment & Plan (1) Pancreatitis: some improvement Dr. Sanchez to discuss surgery with him, may be done as outpatient Supervising Physician Co-Signing Physician Notes Patient seen and examined, labs and imaging reviewed and agree with above. 43-year-old male admitted with pancreatitis and noted to have gallstones on imaging. There is a question of a choledochocyst, and an MRCP was performed yesterday. There is no evidence of choledocholithiasis but significant pancreas inflammation. Regarding the choledochocyst, it appears that this may represent a type choledochal cyst involving the cystic duct with 1 to 2 cm of space prior to insertion into the common bile duct. This may also represent a fold in the gallbladder. We discussed these findings with the patient. His pancreatitis is improving but his white count is increased and he is still symptomatic, therefore no surgical intervention will be planned today. We will discuss this with GI and see if an ERCP is warranted. We will also review the films again and determine whether he would be suitable for cholecystectomy with cholangiogram here versus evaluation by hepatobiliary surgeon. In either case, we would plan on doing this in the few weeks after the inflammation has down more as we will need to dissect close to the common bile duct and this appears to be directly involved with peripancreatic inflammation. Dr. England and Milad from [facility] surgery will be covering over the weekend. Subjective less pain, no flatus, remains bloated and without flatus Physical Exam Gastrointestinal (Abdomen): Inspection/Auscultation: + abdomen distended (less) Percussion/Palpation: + abdomen tender and abdomen soft Results & Data Vital Signs (Past 12 Hours) Vital Signs Temp Pulse Resp BP Pulse Ox 02/28/19 07:05 37.0 C 89 18 159/94 H 92 02/27/19 23:19 37.4 C 82 16 163/95 H 98 PG Care Time/CCT Total # of Minutes Spent Total Time Spent with Patient: Total time spent is greater than 50% in coordination of care (as documented) at patient's floor/unit and/or counseling patient: (1) Pancreatitis Acute pancreatitis complication: unspecified Chronicity: acute Pancreatitis type: unspecified pancreatitis type Qualified Code(s): K85.90 - Acute pancreatitis without necrosis or infection, unspecified
[2019-02-28] MEDS: ONDANSETRON INJ 2 MG/ML 2 ML VIAL IV PRN (10:44)
--- NOTE | 2019-02-28 22:46 | Hospitalist Progress Note ---
Date of Service February 28, 2019 Assessment & Plan (1) Pancreatitis: Biochemical and radiographic findings consistent with acute pancreatitis. No heavy alcohol consumption. Triglycerides normal. Found to have cholelithiasis on imaging, but no apparent choledocholithiasis. Most likely etiology gallstone pancreatitis. GI and General Surgery consulted. Symptoms and labs improved. Continue bowel rest, IV fluids, analgesics, antiemetics. (2) Cholelithiasis: As discussed above. 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 Further evaluation/management per GI and General Surgery. (4) Elevated blood pressure reading: Episodic elevations of blood pressure probably secondary to discomfort and/or anxiety. Antihypertensive therapy not indicated at this time. Follow. (5) DVT prophylaxis: No anticoagulants at this time in case any invasive procedures are necessary. SCDs. Ambulate. (6) Discharge planning issues: Anticipated discharge home. Family Medicine follow-up with Dr. Tavo Chairez. Subjective Recheck for pancreatitis. Patient seen in their room around 1140. Abdominal pain improved. No further nausea or vomiting. No diarrhea, melena, hematochezia. No cough or SOB. Performing incentive spirometry. Ambulating. Review of Systems: Constitutional- no fever. Cardiac- no chest pain. Pulmonary- no cough or SOB. GI- as noted above. - good urine output. Otherwise, as noted above. Physical Exam Constitutional: no acute distress Eyes: + anicteric sclerae Respiratory: no respiratory distress Auscultation: lungs clear to auscultation bilaterally Cardiovascular: Rate/Rhythm: regular rate and regular rhythm Heart Sounds: no gallop, no murmur and no cardiac rub Vessels: no JVD Extremities: no calf tenderness and no edema Gastrointestinal (Abdomen): Inspection/Auscultation: + abdomen distended; + abnormal bowel sounds (quiet) Percussion/Palpation: + abdomen tender (mild epigastric tenderness without guarding) Skin: no rashes, warm and dry Psychiatric: Orientation: alert (a bit somnolent after receiving hydromorphone) and oriented x 3 Results & Data Vital Signs (Past 12 Hours) Vital Signs Temp Pulse Resp BP Pulse Ox 02/28/19 16:07 37.4 C 86 18 160/93 H 90 Laboratory Results Laboratory Results - last 24 hr 02/28/19 02/28/19 04:39 04:39 WBC 18.62 H RBC 5.48 Hgb 16.1 Hct 48.5 MCV 88.5 MCH 29.4 MCHC 33.2 RDW Std Deviation 45.1 RDW Coeff of Jose 13.9 Plt Count 225 MPV 10.6 H Sodium 137 Potassium 3.5 Chloride 104 Carbon Dioxide 26 Anion Gap 7.0 BUN 12 Creatinine 0.87 Est Cr Clr Drug Dosing 141.4 Est GFR ( Amer) 121.7 Est GFR (Non-Af Amer) 105.0 BUN/Creatinine Ratio 13.9 Glucose 103 H Calcium 8.3 L Total Bilirubin 1.0 D AST 40 H ALT 97 H Alkaline Phosphatase 65 Total Protein 7.3 Albumin 3.4 Globulin 3.9 Albumin/Globulin Ratio 0.9 Lipase 1707 H (1) Pancreatitis Acute pancreatitis complication: unspecified Chronicity: acute Pancreatitis type: unspecified pancreatitis type Qualified Code(s): K85.90 - Acute panc reatitis without necrosis or infection, unspecified
[2019-03-01] MEDS: LACTATED RINGER'S 1,000 ML IV SCH ×6 (02:28→23:39)
[2019-03-01 05:39] LABS: Hematocrit (blood only) 44.2 % (42-52); Hemoglobin 14.6 g/dL (14.0-18.0); Mean Corpuscular Hemoglobin 29.1 pg (25-34); Mean Corpuscular Volume 88.2 fL (80-100); Mean Platelet Volume 10.3 fL (7.4-10.4); Platelet Count 232 K/uL (130-400); RDW Coefficient of Variation 13.9 % (11.5-14.5); Red Blood Count 5.01 M/uL (4.7-6.1); White Blood Count 17.55 K/uL (4.8-10.8)
[2019-03-01 06:19] LABS: BUN Creatinine Ratio 9.3 (10-20); Bilirubin Direct 0.7 mg/dl (0-0.2); Calcium 8.5 mg/dl (8.5-10.1); Creatinine Clr Calc Pharmacy 146.4 ml/min; Est GFR (African American) 123.4; Est GFR (Non-African American) 106.5; Potassium 3.7 mmol/L (3.5-5.1)
[2019-03-01 06:24] LABS: Albumin Globulin Ratio 0.7 (0.9-2); Bilirubin,Total 2.3 mg/dl (0.2-1); Globulin 4.2 gm/dl (2.5-4.0); Total Protein 7.2 gm/dl (6.4-8.2)
[2019-03-01] MEDS: HYDROmorphone INJ 1 MG/ML SYRINGE IV PRN ×8 (08:41→23:47)
--- NOTE | 2019-03-01 10:12 | Surgery Progress Note ---
Date of Service March 01, 2019 Assessment & Plan (1) Pancreatitis: Patient with pancreatitis Agree with continuing conservative measures and n.p.o. for now Bilirubin increased today although AST, ALT and alkaline phosphatase are essentially the same Awaiting GI opinion regarding need for possible further work-up No surgical intervention immediately We will continue to follow Subjective Patient continues to have abdominal pain but analgesics are helpful Denies nausea and vomiting Has not had bowel movement Physical Exam Gastrointestinal (Abdomen): Inspection/Auscultation: + abdomen distended Percussion/Palpation: + abdomen tender (Upper abdomen bilaterally with left side predominating) and abdomen soft Bowel sounds present but decreased Results & Data Vital Signs (Past 12 Hours) Vital Signs Temp Pulse Pulse Resp BP BP Pulse Ox 03/01/19 09:42 162/90 H 03/01/19 08:33 94 H 163/111 H 94 03/01/19 07:13 36.8 C 77 17 166/104 H 94 02/28/19 23:17 36.9 C 87 16 159/95 H 96 Laboratory Results 03/01/19 03/01/19 Range/Units 05:00 05:00 WBC 17.55 H (4.8-10.8) K/uL RBC 5.01 (4.7-6.1) M/uL Hgb 14.6 (14.0-18.0) g/dL Hct 44.2 (42-52) % MCV 88.2 (80-100) fL MCH 29.1 (25-34) pg MCHC 33.0 (32-36) g/dL RDW Std Deviation 45.0 (36.4-46.3) fL RDW Coeff of Jose 13.9 (11.5-14.5) % Plt Count 232 (130-400) K/uL MPV 10.3 (7.4-10.4) fL Sodium 138 (136-145) mmol/L Potassium 3.7 (3.5-5.1) mmol/L Chloride 104 (98-107) mmol/L Carbon Dioxide 25 (21-32) mmol/L Anion Gap 9.0 (3-11) BUN 8 (7-18) mg/dl Creatinine 0.84 (0.6-1.4) mg/dl Est Cr Clr Drug Dosing 146.4 ml/min Est GFR ( Amer) 123.4 Est GFR (Non-Af Amer) 106.5 BUN/Creatinine Ratio 9.3 L (10-20) Glucose 103 H (70-99) mg/dl Calcium 8.5 (8.5-10.1) mg/dl Total Bilirubin 2.3 H D (0.2-1) mg/dl Direct Bilirubin 0.7 H (0-0.2) mg/dl AST 45 H (15-37) U/L ALT 84 H (12-78) U/L Alkaline Phosphatase 71 (45-117) U/L Total Protein 7.2 (6.4-8.2) gm/dl Albumin 3.0 L (3.4-5.0) gm/dl Globulin 4.2 H (2.5-4.0) gm/dl Albumin/Globulin Ratio 0.7 L (0.9-2) Lipase 320 (73-393) U/L (1) Pancreatitis Acute pancreatitis complication: unspecified Chronicity: acute Pancreatitis type: unspecified pancreatitis type Qualified Code(s): K85.90 - Acute pancreatitis without necrosis or infection, unspecified
--- NOTE | 2019-03-01 10:52 | Gastroenterology Progress Note ---
Date of Service March 01, 2019 Assessment & Plan (1) Cholelithiasis: Patient presented with symptoms suggestive of gallstone pancreatitis. His bilirubin now seems to be increasing along with his AST and ALT. Given his white blood cell count labs I wonder if he would be best served with biliary decompression. This would also offer an opportunity to determine if the patient does indeed have a choledochal cyst. The patient, his and I did have a long discussion this morning about the options which include ERCP locally versus referral to a tertiary center. After discussion we have decided to proceed with the ERCP locally tomorrow. Plan ERCP to be scheduled for tomorrow I think it would be prudent to begin broad-spectrum antibiotic coverage. Imipenem may be a good choice given his underlying pancreatitis Subjective The patient notes that his discomfort is increasing slightly this morning. He notes that he is been able to walk toward. His last meal was on Sunday. He denies having fevers overnights but does note having some chills. Review of Systems Constitutional: + malaise; no sweats Eyes: no diplopia Respiratory: no change in sputum and no hemoptysis Cardiovascular: no chest pain with activity and no dyspnea at rest Gastrointestinal: + abdominal pain and + nausea Physical Exam Constitutional: well developed and well nourished; no acute distress Eyes: + scleral abnormality Mild scleral icterus noted today Respiratory: normal respiratory effort; no respiratory distress and does not use accessory muscles Cardiovascular: RRR, no murmur, no edema Gastrointestinal (Abdomen): Inspection/Auscultation: + abdomen distended Right upper quadrant tenderness noted to palpation Results & Data Vital Signs (Past 12 Hours) Vital Signs Temp Pulse Pulse Resp BP BP Pulse Ox 03/01/19 09:42 162/90 H 03/01/19 08:33 94 H 163/111 H 94 03/01/19 07:13 36.8 C 77 17 166/104 H 94 02/28/19 23:17 36.9 C 87 16 159/95 H 96 Laboratory Results Laboratory Results - last 24 hr 03/01/19 03/01/19 05:00 05:00 WBC 17.55 H RBC 5.01 Hgb 14.6 Hct 44.2 MCV 88.2 MCH 29.1 MCHC 33.0 RDW Std Deviation 45.0 RDW Coeff of Jose 13.9 Plt Count 232 MPV 10.3 Sodium 138 Potassium 3.7 Chloride 104 Carbon Dioxide 25 Anion Gap 9.0 BUN 8 Creatinine 0.84 Est Cr Clr Drug Dosing 146.4 Est GFR ( Amer) 123.4 Est GFR (Non-Af Amer) 106.5 BUN/Creatinine Ratio 9.3 L Glucose 103 H Calcium 8.5 Total Bilirubin 2.3 H D Direct Bilirubin 0.7 H AST 45 H ALT 84 H Alkaline Phosphatase 71 Total Protein 7.2 Albumin 3.0 L Globulin 4.2 H Albumin/Globulin Ratio 0.7 L Lipase 320 Diagnostic Findings MRCP CLINICAL HISTORY: pancreatitis, ? Choledochal cyst on CTA TECHNIQUE: Utilizing a 1.5 Gabby magnet and dedicated coil, multiplanar, multie cho imaging of the upper abdomen was performed utilizing heavily T2 weighted pulsing sequences without IV contrast. COMPARISON STUDY: CTA of the abdomen and pelvis and right upper quadrant ultrasound February 27, 2019. FINDINGS: Peripancreatic infiltration and fluid extending into the mesentery and the anterior pararenal spaces has significantly increased since CTA performed earlier today. No peripancreatic fluid collection is present. The course and caliber of the main pancreatic duct is normal. There is no intra or extrahepatic biliary ductal dilatation. No common bile duct calculi are identified. Numerous gallstones are noted within the gallbladder. No pericholecystic infiltration is present. Note is again made of a 2.4 x 1.7 cm cystic focus located adjacent to the gallbladder neck. This corresponds to the finding on CT performed earlier today. This appears to communicate with the gallbladder and the distal cystic duct. This favors cystic dilatation of the cystic duct. Liver morphology is normal. No hepatic lesions are identified on this unenhanced exam. There are trace bilateral pleural effusions. Unenhanced images of the spleen, adrenal glands and kidneys are unremarkable. IMPRESSION: 1. Significant increase in peripancreatic infiltration and fluid extending into the mesentery and anterior pararenal spaces consistent with acute pancreatitis. 2. No biliary ductal dilatation. No common bile duct calculi. 3. Cholelithiasis. No pericholecystic infiltration or fluid. 4. 2.4 x 1.7 cm cystic focus located anterior to the gallbladder neck which corresponds to the finding on CT. This favors cystic dilatation of a portion of the cystic duct and raises the possibility of a type choledochal cyst. US gallbladder CLINICAL HISTORY: gall stones/pancreatitis COMPARISON STUDY: CT scan dated 02/27/2019 FINDINGS: The pancreas was not visualized. No focal hepatic masses were delineated. The gallbladder is stone filled. There is borderline gallbladder wall thickening (4 mm). The common bile duct measures 6 mm. There is a nonspecific 22 x 18 x 16 mm cystic structure adjacent to the gallbladder neck. IMPRESSION: 1. Stone filled gallbladder with borderline gallbladder wall thickening 2. No evidence of ductal dilatation 3. Nondiagnostic evaluation the pancreas 4. Nonspecific 22 x 18 x 16 mm cystic structure adjacent to the gallbladder neck. This corresponds to the cystic lesion visualized on CT scanning. A choledochal cyst cannot be exclude
--- NOTE | 2019-03-01 11:36 | Anesthesiology Consultation ---
Date of Service March 01, 2019 Assessment & Plan (1) Encounter for pre-operative examination: Chart Review Chart Review: Acceptable Risk for Surgery Consults Requested none ASA ASA2 Proposed Anesthesia Anesthesia Type: General Risk / Benefits Reviewed With: PT / POA / Parent / Guardian, Accepts Plan and Informed Consent Obtained History Surgery Operation Date: 03/01/19 13:00 Proposed Procedures p Endoscopic Retrograde Cholangiopancreamaris Villalpando Torres Operation Date: 03/02/19 08:00 Proposed Procedures p Endoscopic Retrograde Cholangiopancreato Daysi Torres Height/Weight Height: 5 ft 10 in Weight: 121.1 kg Allergies Allergy/AdvReac Type Severity Reaction Status Date / Time No Known Allergies Allergy Unverified 02/27/19 04:42 Medications Home Medications Medication Instructions Recorded Confirmed Last Taken lorazepam 0.5 mg PO BID PRN 02/27/19 02/27/19 Unknown Active Medications Generic Name Dose Route Start Last Admin Trade Name Freq PRN Reason Stop Dose Admin Acetaminophen 650 mg 02/27/19 06:08 02/27/19 23:34 Tylenol PO 03/29/19 06:07 650 mg Q4H PRN Administration pain/fever Hydromorphone HCl 1 mg 02/27/19 08:24 03/02/19 06:31 Dilaudid IV 03/13/19 08:23 1 mg Q1H PRN Administration Pain Lactated Ringer's 1,000 mls @ 125 mls/hr 02/27/19 06:08 03/02/19 07:10 Lr IV 03/29/19 06:07 125 mls/hr .Q8H FAVIO Infusion Ampicillin Sodium/Sulbactam 108 mls @ 200 mls/hr 03/01/19 12:00 03/02/19 07:09 Sodium 3,000 mg/ Sodium IV 03/11/19 11:59 Infused Chloride Q6 FAVIO Infusion Protocol Lorazepam 0.5 mg 02/27/19 06:08 02/27/19 21:15 Ativan PO 03/29/19 06:07 0.5 mg BID PRN Administration Anxiety Ondansetron HCl 4 mg 02/27/19 06:08 03/01/19 16:54 Zofran IV 03/29/19 06:07 4 mg Q6H PRN Administration Nausea NPO Date Last Intake of Fluids: 02/26/19 Time Last Intake of Fluids: 23:00 Date Last Intake of Solids: 02/26/19 Time Last Intake of Solids: 23:00 Past Medical History Medical History Left arm pain (Acute) Left shoulder pain (Acute) Anxiety Obesity Exercise / Class Metabolic Activity II 4-5 Yardwork/Stairs/Walk up hill Past Family History Family History Other Heart disease Myocardial infarction Past Anesthesia History No Hx of Anesthesia Complications and No Family Hx of Anesthesia Complications History of PONV No Hx of PONV and No Hx of Motion Sickness Social History Smoking Status: Current some day smoker tobacco type: cigarettes Smoking cigarettes per day: 0.25 Do You Dip or Chew Tobacco: No Hx Alcohol Use: Yes alcohol intake frequency: a few times a week substance use type: marijuana Substance Use Type Other:: occasional Last Used Substance: Unknown Physical Exam Vital Signs Last Vital Signs Temp 97.7 F 03/02/19 07:13 Pulse 78 03/02/19 07:13 Resp 20 03/02/19 07:13 BP 155/85 H 03/02/19 07:13 Pulse Ox 95 03/02/19 07:13 ENMT Mouth: no dentition abnormality Thyromental Distance: > or= 3.5 Finger Breadths Mallampati Class: II Neck normal visual inspection Respiratory normal respiratory effort Auscultation: lungs clear to auscultation bilaterally Cardiovascular Rate/Rhythm: regular rate and regular rhythm Testing Laboratory Results 03/01/19 05:00 03/01/19 05:00 Electrocardiogram Date: 02/27/19 Normal sinus rhythm, rate 79 bpm Normal ECG When compared with ECG of 13-JAN-2014 08:15, No significant change was found Confirmed by Damaso Ferreira ([id number]) on 02/27/2019 9:45:24 PM
[2019-03-01] MEDS: AMPICILLIN/SULBACTAM SOD 3,000 MG in 0.9 % SODIUM CHLORIDE 100 ML IV SCH ×3 (11:41→23:41)
[2019-03-01] MEDS ORDERED: ENALAPRILAT 0.625 MG in SYRINGE 9.5 ML IV PRN (15:56)
[2019-03-01] MEDS: ONDANSETRON INJ 2 MG/ML 2 ML VIAL IV PRN (16:54)
--- NOTE | 2019-03-01 18:56 | Hospitalist Progress Note ---
Date of Service March 01, 2019 Assessment & Plan (1) Pancreatitis: Biochemical and radiographic findings consistent with acute pancreatitis. No heavy alcohol consumption. Triglycerides normal. Found to have cholelithiasis on imaging, but no apparent choledocholithiasis. Most likely etiology gallstone pancreatitis. GI and General Surgery consulted. Symptoms fluctuating. Lipase improved. Bilirubin rising. ERCP recommended by GI. Started on IV ampicillin / sulbactam for possible cholecystitis. Continue bowel rest, IV fluids, analgesics, antiemetics. (2) Cholelithiasis: As discussed above. 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 Further evaluation/management per GI and General Surgery. (4) Elevated blood pressure reading: Episodic elevations of blood pressure probably secondary to discomfort and/or anxiety. Best to treat underlying pain first. IV enalapril PRN for persistent / significant BP elevations. Follow. (5) DVT prophylaxis: No anticoagulants at this time in case any invasive procedures are necessary. SCDs. Ambulate. (6) Discharge planning issues: Anticipated discharge home. Family Medicine follow-up with Dr. Tavo Chairez. Subjective Recheck for pancreatitis. Patient seen in their room around 1130. Low grade fever last night. Abdominal pain somewhat worse this morning- better after receiving IV hydromorphone. No further nausea or vomiting. No diarrhea, melena, hematochezia. No cough or SOB. Performing incentive spirometry. Ambulating. Review of Systems: Constitutional- no fever. Cardiac- no chest pain. Pulmonary- no cough or SOB. GI- as noted above. - good urine output. Otherwise, as noted above. Physical Exam Constitutional: no acute distress Eyes: + anicteric sclerae Respiratory: no respiratory distress Auscultation: lungs clear to auscultation bilaterally Cardiovascular: Rate/Rhythm: regular rate and regular rhythm Heart Sounds: no gallop, no murmur and no cardiac rub Vessels: no JVD Extremities: no calf tenderness and no edema Gastrointestinal (Abdomen): Inspection/Auscultation: + abdomen distended; + abnormal bowel sounds (quiet) Percussion/Palpation: + abdomen tender (mild epigastric tenderness without guarding (after receiving analgesics)) Skin: no rashes, warm and dry Psychiatric: Orientation: alert (a bit somnolent after receiving hydromorphone) and oriented x 3 Results & Data Vital Signs (Past 12 Hours) Vital Signs Temp Pulse Pulse Resp BP Pulse Ox 03/01/19 14:56 36.6 C 91 H 18 176/116 H 94 03/01/19 09:42 162/90 H 03/01/19 08:33 94 H 163/111 H 94 03/01/19 07:13 36.8 C 77 17 166/104 H 94 Laboratory Results 03/01/19 05:00 03/01/19 05:00 Laboratory Tests 02/27/19 02/28/19 03/01/19 02:05 04:39 05:00 Total Bilirubin 0.4 1.0 D 2.3 H D AST 59 H 40 H 45 H ALT 86 H 97 H 84 H Alkaline Phosphatase 86 65 71 Lipase 05868 H 1707 H 320 (1) Pancreatitis Acute pancreatitis complication: unspecified Chronicity: acute Pancreatitis type: unspecified pancreatitis type Qualified Code(s): K85.90 - Acute pancreatitis without necrosis or infection, unspecified
[2019-03-01] MEDS ORDERED: cloNIDine HCl 0.1 MG TAB PO PRN (22:39)
[2019-03-02] MEDS: HYDROmorphone INJ 1 MG/ML SYRINGE IV PRN ×4 (01:57→06:31)
[2019-03-02] MEDS: AMPICILLIN/SULBACTAM SOD 3,000 MG in 0.9 % SODIUM CHLORIDE 100 ML IV SCH ×4 (06:34→23:27)
[2019-03-02] MEDS ORDERED: fentaNYL citrate 100 MCG/2 ML VIAL ONE (06:44)
[2019-03-02] MEDS ORDERED: LIDOCAINE HCL 2% 2 ML VIAL/AMP(20MG/ML) INFIL ONE (06:44)
[2019-03-02] MEDS ORDERED: PROPOFOL IV EMULSION 10 MG/ML 20 ML VIAL IV ONE (06:44)
[2019-03-02] MEDS ORDERED: MIDAZOLAM HCL 1 MG/ML 2ML VIAL ONE (06:44)
--- NOTE | 2019-03-02 07:03 | History & Physical Bridge Note ---
Date of Service March 02, 2019 History & Physical Bridge Note I have examined the patient, reviewed the History & Physical and in the interval since the performance of the History & Physical I have noted the following changes of clinical significance: no changes noted. ERCP planned today due to rising liver enzymes and suspected common bile duct stones. We have discussed the risks and benefits to include bleeding, infection, perforation, pain, pancreatitis and failed biliary cannulation.
[2019-03-02] MEDS ORDERED: INDOMETHACIN 50 MG SUPP PR ONE (07:25)
[2019-03-02] MEDS ORDERED: ePHEDrine sulfate 50 MG/ML AMP IV PRN (07:25)
[2019-03-02] MEDS ORDERED: fentaNYL citrate 100 MCG/2 ML VIAL IV PRN (07:25)
[2019-03-02] MEDS ORDERED: ONDANSETRON INJ 2 MG/ML 2 ML VIAL IV PRN (07:25)
[2019-03-02] MEDS ORDERED: ATROPINE SULFATE 0.1 MG/ML 10ML SYR IV PRN (07:25)
--- NOTE | 2019-03-02 08:03 | Post Operative Brief Note ---
Immediate Post Op Note v1 Date of Surgery March 02, 2019 Pre & Post Diagnosis Operation Date: 03/01/19 13:00 <No data on this case meets the specified criteria> Operation Date: 03/02/19 08:00 Pre-Op Diagnosis: Cholelithiasis. Post-Op Diagnosis: Cholelithiasis. I identified the patient and participated in the time-out.: Yes Procedure Operation Date: 03/01/19 13:00 <No data on this case meets the specified criteria> Operation Date: 03/02/19 08:00 Actual Procedures p Endoscopic retrograde cholangiopancreatography (Not Applicable) - Kwasi Torres Surgeon Kwasi Trores Entry Processor none Estimated Blood Loss 0 Findings Consistent with Post-Op Diagnosis
--- NOTE | 2019-03-02 08:17 | GI REPORT ---
Patient Name: Vern Reeder Procedure Date: 03/02/2019 7:42 AM Date of : 1975 Admit Type: Inpatient Age: 43 Gender: Male Attending MD: Kwasi Torres DO Procedure: ERCP Providers: Kwasi Torres DO Referring MD: Santino Kruger Indications: Abdominal pain of suspected biliary origin, Jaundice, Elevated liver enzymes Medicines: General Anesthesia Complications: No immediate complications. Estimated blood loss: Minimal. Estimated Blood Loss: Estimated blood loss was minimal. Procedure: Pre-Anesthesia Assessment: - Prior to the procedure, a History and Physical was performed, and patient medications, allergies and sensitivities were reviewed. The patient's tolerance of previous anesthesia was reviewed. - The risks and benefits of the procedure and the sedation options and risks were discussed with the patient. All questions were answered and informed consent was obtained. - Patient identification and proposed procedure were verified prior to the procedure by the physician, the nurse and the airport clerk. The procedure was verified in the procedure room. - Pre-procedure physical examination revealed no contraindications to sedation. - ASA Grade Assessment: II - A patient with mild systemic disease. - After reviewing the risks and benefits, the patient was deemed in satisfactory condition to undergo the procedure. - The anesthesia plan was to use monitored anesthesia care (MAC). - Immediately prior to administration of medications, the patient was re-assessed for adequacy to receive sedatives. - The heart rate, respiratory rate, oxygen saturations, blood pressure, adequacy of pulmonary ventilation, and response to care were monitored throughout the procedure. - The physical status of the patient was re-assessed after the procedure. After obtaining informed consent, the scope was passed under direct vision. Throughout the procedure, the patient's blood pressure, pulse, and oxygen saturations were monitored continuously. The Scope was introduced through the mouth, and advanced to the duodenum and used to inject contrast into the bile duct. The ERCP was accomplished without difficulty. The patient tolerated the procedure well. Findings: The form drafter film was normal. The esophagus was successfully intubated under direct vision without detailed examination of the pharynx, larynx, and associated structures, and upper GI tract. The upper GI tract was grossly normal. The major papilla was small. The bile duct was deeply cannulated with the short-nosed traction sphincterotome and guidewire. Contrast was injected. I personally interpreted the bile duct images. Contrast extended to the entire biliary tree. The lower third of the main bile duct contained filling defect(s) thought to be a stone. The biliary orifice was stenotic. This appeared benign. The cystic duct was seen and appeared to be patent. The gallbladder was dilated and appeared to be redundent with evidence of a dilated gallbadder neck. There did not appear to evidence of a choledochal cyst. Biliary sphincterotomy was made with a monofilament Dreamtome sphincterotome using ERBE electrocautery. There was no post-sphincterotomy bleeding. To discover objects, the biliary tree was swept with a 10 mm balloon starting at the bifurcation. One stone was removed. No stones remained. One 10 Fr by 9 cm biliary stent with a single external flap and a single internal flap was placed 9 cm into the common bile duct. Bile flowed through the stent. The stent was in good position. The endoscope was withdrawn from the patient. The total fluoroscopy exposure time was 54 seconds. Indomethacin 100 mg was given via suppository to decrease the risk of post-ERCP pancreatitis (PEP). Impression: - The major papilla appeared to be small. - Biliary papillary stenosis, benign. - Choledocholithiasis was found. Complete removal was accomplished by biliary sphincterotomy and balloon extraction. - One biliary stent was placed into the common bile duct. - Indomethacin given to decrease risk of post-ERCP pancreatitis. Recommendation: - [facility] for [facility] care. - Clear liquid diet today. - Repeat ERCP in 6 weeks to remove stent. Kwasi Torres D.O. Kwasi Torres, 03/02/2019 8:17:18 AM This report has been signed electronically. Note Initiated On: 03/02/2019 7:42 AM Number of Addenda: 0 I attest to the content of the Intraoperative Record and orders documented therein, exceptions below {[id number]}
[2019-03-02] MEDS ORDERED: GLUCAGON FOR INJ 1 MG VIAL ONE (08:37)
--- NOTE | 2019-03-02 08:38 | Fluoroscopy Report ---
INTRAOPERATIVE RADIOGRAPHS CLINICAL HISTORY: ERCP procedure. Fluoroscopy time: 54 seconds. FINDINGS: 14 spot fluoroscopic views of the right upper quadrant from an ERCP procedure are presented . There is cannulation of the common bile duct. No intra or extrahepatic biliary ductal dilatation is seen. No filling defects are clearly identified to suggest choledocholithiasis. Contrast opacifies t he gallbladder. A balloon sweep of the common duct is performed. The final image shows a common bile duct stent in place. There is no evidence of choledochal cyst on the provided images. IMPRESSION: Intraoperative ERCP images as above. See operative report for detailed findings. Electronically signed by: Gary Daely M.D. 03/02/2019 8:37 AM
--- NOTE | 2019-03-02 08:46 | Anesthesiology Progress Note ---
Date of Service March 02, 2019 Anesthesia Post Procedure Vital Signs Vital Signs: Temp Pulse Pulse Resp BP Pulse Ox 03/02/19 08:40 98.2 F 67 20 165/96 H 94 03/02/19 08:30 67 15 155/82 H 93 03/02/19 08:20 65 21 157/88 H 93 03/02/19 08:13 98.1 F 81 16 141/109 H 93 03/02/19 07:13 97.7 F 78 20 155/85 H 95 03/01/19 23:17 99.0 F 80 16 166/94 H 92 03/01/19 14:56 97.9 F 91 H 18 176/116 H 94 Pain Intensity Abdomen: Pain Intensity: 2 Transfer of Care Handoff Completed per policy Notes Mental Status: alert / awake / arousable and participated in evaluation Patient Amnestic to Procedure: Yes Nausea / Vomiting: adequately controlled Pain: adequately controlled Airway Patency, RR, SpO2: stable & adequate BP & HR: stable & adequate Hydration State: stable & adequate Anesthetic Complications: no major complications apparent and Pt Satisfied with anesthetic care
[2019-03-02] MEDS: LACTATED RINGER'S 1,000 ML IV SCH ×3 (09:08→17:54)
[2019-03-02 09:10] LABS: Hematocrit (blood only) 42.3 % (42-52); Hemoglobin 13.9 g/dL (14.0-18.0); Mean Corpuscular Hemoglobin 29.3 pg (25-34); Mean Corpuscular Hgb Conc 32.9 g/dL (32-36); Mean Corpuscular Volume 89.1 fL (80-100); Platelet Count 225 K/uL (130-400); RDW Coefficient of Variation 13.6 % (11.5-14.5); RDW Standard Deviation 44.3 fL (36.4-46.3); Red Blood Count 4.75 M/uL (4.7-6.1); White Blood Count 15.11 K/uL (4.8-10.8)
--- NOTE | 2019-03-02 09:22 | Communication Note ---
Date of Service: March 02, 2019 The patient underwent ERCP this morning. We did find a small gallstone within the distal common bile duct in addition to papillary stenosis. There did not appear to be evidence of a choledochal cyst within the main biliary tree. The gallbladder was dilated with a dilated gallbladder neck. Cystic duct appeared to be patent. Recommendations Clear liquids today Continue antibiotic coverage for a total of 10 days Await general surgery input with regard to cholecystectomy
[2019-03-02 09:27] LABS: Albumin Level 3.1 gm/dl (3.4-5.0); BUN Creatinine Ratio 11.2 (10-20); Bilirubin Direct 0.5 mg/dl (0-0.2); Calcium 9.1 mg/dl (8.5-10.1); Creatinine Clr Calc Pharmacy 141.4 ml/min; Est GFR (African American) 121.7
[2019-03-02 09:31] LABS: Albumin Globulin Ratio 0.7 (0.9-2); Globulin 4.3 gm/dl (2.5-4.0); Total Protein 7.4 gm/dl (6.4-8.2)
--- NOTE | 2019-03-02 10:27 | Surgery Progress Note ---
Date of Service March 02, 2019 Assessment & Plan (1) Pancreatitis: Patient with pancreatitis S/p ERCP today with Dr. Torres + choledocholithaisis and papillary stenosis, no choledochocyst, cystic duct patent improvement of t. bili to 1.0 (2.3 yesterday) lipase 320 continue clear liquids for today Dr. Sanchez to return tomorrow, will determine timing of cholecystectomy continue med management Dr. Stinson has seen and examined pt, agrees with above Subjective feeling better, pain minimal tolerated clear liquids had ERCP today (found distal CBD stone and papillary stenosis, no choledochocyst, gallbladder distended but cystic duct patent) passing flatus Physical Exam Constitutional: WD/WN, vitals as above no acute distress Gastrointestinal (Abdomen): Inspection/Auscultation: abdomen normal to inspection; abdomen not distended Percussion/Palpation: + abdomen tender (RUQ but vastly improved) and abdomen soft; no guarding and abdomen not rigid Skin: no rashes, warm and dry Psychiatric: A+Ox3, euthymic affect Results & Data Vital Signs (Past 12 Hours) Vital Signs Temp Pulse Pulse Resp BP Pulse Ox 03/02/19 10:05 36.6 C 76 19 158/97 H 94 03/02/19 09:02 36.7 C 82 16 131/88 95 03/02/19 08:50 60 17 155/85 H 95 03/02/19 08:45 145/86 H 03/02/19 08:40 36.8 C 67 20 165/96 H 94 03/02/19 08:30 67 15 155/82 H 93 03/02/19 08:20 65 21 157/88 H 93 03/02/19 08:13 36.7 C 81 16 141/109 H 93 03/02/19 07:13 36.5 C 78 20 155/85 H 95 Laboratory Results 03/02/19 03/02/19 Range/Units 09:01 09:01 WBC 15.11 H (4.8-10.8) K/uL RBC 4.75 (4.7-6.1) M/uL Hgb 13.9 L (14.0-18.0) g/dL Hct 42.3 (42-52) % MCV 89.1 (80-100) fL MCH 29.3 (25-34) pg MCHC 32.9 (32-36) g/dL RDW Std Deviation 44.3 (36.4-46.3) fL RDW Coeff of Jose 13.6 (11.5-14.5) % Plt Count 225 (130-400) K/uL MPV 10.0 (7.4-10.4) fL Sodium 137 (136-145) mmol/L Potassium 4.0 (3.5-5.1) mmol/L Chloride 102 (98-107) mmol/L Carbon Dioxide 28 (21-32) mmol/L Anion Gap 7.0 (3-11) BUN 10 (7-18) mg/dl Creatinine 0.87 (0.6-1.4) mg/dl Est Cr Clr Drug Dosing 141.4 ml/min Est GFR ( Amer) 121.7 Est GFR (Non-Af Amer) 105.0 BUN/Creatinine Ratio 11.2 (10-20) Glucose 103 H (70-99) mg/dl Calcium 9.1 (8.5-10.1) mg/dl Total Bilirubin 1.0 D (0.2-1) mg/dl Direct Bilirubin 0.5 H (0-0.2) mg/dl AST 39 H (15-37) U/L ALT 71 (12-78) U/L Alkaline Phosphatase 79 (45-117) U/L Total Protein 7.4 (6.4-8.2) gm/dl Albumin 3.1 L (3.4-5.0) gm/dl Globulin 4.3 H (2.5-4.0) gm/dl Albumin/Globulin Ratio 0.7 L (0.9-2) Lipase 394 H (73-393) U/L (1) Pancreatitis Acute pancreatitis complication: unspecified Chronicity: acute Pancreatitis type: unspecified pancreatitis type Qualified Code(s): K85.90 - Acute pancreatitis without necrosis or infection, unspecified
--- NOTE | 2019-03-02 17:08 | Hospitalist Progress Note ---
Date of Service March 02, 2019 Assessment & Plan (1) Pancreatitis: Biochemical and radiographic findings consistent with acute pancreatitis. No heavy alcohol consumption. Triglycerides normal. Found to have cholelithiasis on imaging, but no apparent choledocholithiasis. Most likely etiology gallstone pancreatitis. GI and General Surgery consulted. Symptoms fluctuating. Lipase improved. Started on IV ampicillin / sulbactam for possible cholecystitis. ERCP showed papillary stenosis, choledocholithiasis, no apparent choledochal cyst. Sphincterotomy, stone extraction, and stent placement performed. Continue bowel rest, IV fluids, analgesics, antiemetics. Management of cholelithiasis per General Surgery. (2) Cholelithiasis: As discussed above. (3) Biliary cyst: Suspected on CT, US, MRCP, but not confirmed by ERCP. (4) Elevated blood pressure reading: Episodic elevations of blood pressure probably secondary to discomfort and/or anxiety. Best to treat underlying pain first. IV enalapril or clonidine PRN for persistent / significant BP elevations. Follow. (5) DVT prophylaxis: No anticoagulants at this time in case any invasive procedures are necessary. SCDs. Ambulate. (6) Discharge planning issues: Anticipated discharge home. Family Medicine follow-up with Dr. Tavo Chairez. Subjective Recheck for pancreatitis. Patient seen in their room around 0920. Underwent ERCP this morning. No fever. Abdominal pain improved. No further nausea or vomiting. Passing flatus. No diarrhea, melena, hematochezia. No cough or SOB. Performing incentive spirometry. Ambulating. Review of Systems: Constitutional- no fever. Cardiac- no chest pain. Pulmonary- no cough or SOB. GI- as noted above. - good urine output. Otherwise, as noted above. Physical Exam Constitutional: no acute distress Eyes: + anicteric sclerae Respiratory: no respiratory distress Auscultation: lungs clear to auscultation bilaterally Cardiovascular: Rate/Rhythm: regular rate and regular rhythm Heart Sounds: no gallop, no murmur and no cardiac rub Vessels: no JVD Extremities: no calf tenderness and no edema Gastrointestinal (Abdomen): Inspection/Auscultation: + abdomen distended and normal bowel sounds Percussion/Palpation: abdomen nontender Skin: no rashes, warm and dry Psychiatric: Orientation: alert and oriented x 3 Results & Data Vital Signs (Past 12 Hours) Vital Signs Temp Pulse Pulse Resp BP Pulse Ox 03/02/19 15:29 36.5 C 72 19 156/102 H 94 03/02/19 11:54 36.8 C 76 16 143/92 H 95 03/02/19 10:05 36.6 C 76 19 158/97 H 94 03/02/19 09:02 36.7 C 82 16 131/88 95 03/02/19 08:50 60 17 155/85 H 95 03/02/19 08:45 145/86 H 03/02/19 08:40 36.8 C 67 20 165/96 H 94 03/02/19 08:30 67 15 155/82 H 93 03/02/19 08:20 65 21 157/88 H 93 03/02/19 08:13 36.7 C 81 16 141/109 H 93 03/02/19 07:13 36.5 C 78 20 155/85 H 95 (1) Pancreatitis Acute pancreatitis complication: unspecified Chronicity: acute Pancreatitis type: unspecified pancreatitis type Qualified Code(s): K85.90 - Acute pancreatitis without necrosis or infection, unspecified
[2019-03-02] MEDS: LORazepam 0.5 MG TAB PO PRN (19:43)
[2019-03-02] MEDS: HYDROmorphone INJ 0.5 MG/0.5 ML SYR IV PRN ×2 (19:43→23:23)
[2019-03-03] MEDS: LACTATED RINGER'S 1,000 ML IV SCH ×3 (02:26→15:13)
[2019-03-03] MEDS: HYDROmorphone INJ 0.5 MG/0.5 ML SYR IV PRN ×4 (02:30→23:27)
[2019-03-03] MEDS: AMPICILLIN/SULBACTAM SOD 3,000 MG in 0.9 % SODIUM CHLORIDE 100 ML IV SCH ×5 (05:37→23:34)
[2019-03-03] MEDS: LORazepam 0.5 MG TAB PO PRN ×2 (07:08→20:18)
--- NOTE | 2019-03-03 08:19 | Anesthesiology Progress Note ---
Date of Service March 03, 2019 Anesthesia Post Procedure Vital Signs Vital Signs: Temp Pulse Pulse Resp BP Pulse Ox 03/03/19 07:46 36.9 C 75 16 144/93 H 97 03/03/19 02:30 36.5 C 69 16 146/87 H 95 03/02/19 22:58 36.9 C 78 16 144/90 H 97 03/02/19 15:29 36.5 C 72 19 156/102 H 94 03/02/19 11:54 36.8 C 76 16 143/92 H 95 03/02/19 10:05 36.6 C 76 19 158/97 H 94 03/02/19 09:02 36.7 C 82 16 131/88 95 03/02/19 08:50 60 17 155/85 H 95 03/02/19 08:45 145/86 H 03/02/19 08:40 36.8 C 67 20 165/96 H 94 03/02/19 08:30 67 15 155/82 H 93 03/02/19 08:20 65 21 157/88 H 93 Pain Intensity Abdomen: Pain Intensity: 2 Bilateral Abdomen: Pain Intensity: 4 Notes Mental Status: alert / awake / arousable and participated in evaluation Patient Amnestic to Procedure: Yes Nausea / Vomiting: adequately controlled Pain: adequately controlled Airway Patency, RR, SpO2: stable & adequate BP & HR: stable & adequate Hydration State: stable & adequate Anesthetic Complications: no major complications apparent and Pt Satisfied with anesthetic care
--- NOTE | 2019-03-03 10:16 | Surgery Progress Note ---
Date of Service March 03, 2019 Assessment & Plan (1) Pancreatitis: s/p ERCP pancreatitis improved will proceed with lap moriah today Supervising Physician Co-Signing Physician Notes 43 y/o male with choledocholithiasis and pancreatitis, ERCP yesterday removed stone and no choledochal cyst. Feeling better, NPO. on exam obese, nontender. Labs normalizing plan for laparoscopic cholecystectomy with possible cholangiogram Risks reviewed to include bleeding, infection, retained stone, bile leak, damage to surrounding structures including bile duct, open surgery, need for future or more extensive surgery, and risks of anesthesia abx pre op Subjective some flatus, small BM, feels much better after ERCP Physical Exam Gastrointestinal (Abdomen): Inspection/Auscultation: abdomen not distended Percussion/Palpation: abdomen soft; abdomen nontender Results & Data Vital Signs (Past 12 Hours) Vital Signs Temp Pulse Pulse Resp BP Pulse Ox 03/03/19 07:46 36.9 C 75 16 144/93 H 97 03/03/19 02:30 36.5 C 69 16 146/87 H 95 03/02/19 22:58 36.9 C 78 16 144/90 H 97 PG Care Time/CCT Total # of Minutes Spent Total Time Spent with Patient: Total time spent is greater than 50% in coordination of care (as documented) at patient's floor/unit and/or counseling patient: (1) Pancreatitis Acute pancreatitis complication: unspecified Chronicity: acute Pancreatitis type: unspecified pancreatitis type Qualified Code(s): K85.90 - Acute pancreatitis without necrosis or infection, unspecified
[2019-03-03] MEDS: HYDROmorphone INJ 1 MG/ML SYRINGE IV PRN (10:48)
[2019-03-03] MEDS ORDERED: ONDANSETRON INJ 2 MG/ML 2 ML VIAL ONE ×2 (11:52→13:39)
[2019-03-03] MEDS ORDERED: PROPOFOL IV EMULSION 10 MG/ML 20 ML VIAL IV ONE (11:52)
[2019-03-03] MEDS ORDERED: NEOSTIGMINE METHYLSULFATE 5 MG/5 ML SYR ONE ×2 (11:52→13:39)
[2019-03-03] MEDS ORDERED: GLYCOPYRROLATE 0.2 MG/ML VIAL ONE (11:52)
[2019-03-03] MEDS ORDERED: DEXAMETHASONE SOD INJ 4 MG/ML VIAL ONE ×3 (11:52→13:39)
[2019-03-03] MEDS ORDERED: LIDOCAINE HCL 2% 2 ML VIAL/AMP(20MG/ML) INFIL ONE ×2 (11:52→13:39)
[2019-03-03] MEDS ORDERED: ROCURONIUM BROMIDE 10 MG/ML 5 ML VIAL ONE ×5 (11:52→13:39)
[2019-03-03] MEDS ORDERED: MIDAZOLAM HCL 1 MG/ML 2ML VIAL ONE (11:53)
[2019-03-03] MEDS ORDERED: fentaNYL citrate 100 MCG/2 ML VIAL ONE ×4 (11:53→14:16)
[2019-03-03] MEDS ORDERED: CEFAZOLIN 2000MG 2,000 MG/15 ML SYR IV ONE (12:21)
[2019-03-03] MEDS ORDERED: CEFAZOLIN 2,000 MG/15 ML IV PUSH IV ONE (12:23)
[2019-03-03] MEDS ORDERED: BUPIVACAINE 0.5 % 5 MG/1 ML MPF 30ML VIAL ONE (12:27)
[2019-03-03] MEDS ORDERED: CONRAY 60% 50 ML VIAL ONE (12:27)
--- NOTE | 2019-03-03 12:30 | Anesthesiology Consultation ---
Date of Service March 03, 2019 Assessment & Plan ASA ASA2 Proposed Anesthesia Anesthesia Type: General Risk / Benefits Reviewed With: PT / POA / Parent / Guardian, Accepts Plan and Informed Consent Obtained History Surgery Operation Date: 03/01/19 13:00 Proposed Procedures p Endoscopic Retrograde Cholangiopancreato Daysi Torres Operation Date: 03/02/19 08:00 Proposed Procedures p Endoscopic Retrograde Cholangiopancreato Daysi Torres Operation Date: 03/03/19 08:15 Proposed Procedures p Laparoscopic Cholecystectomy - Isaiah Sanchez DO, FACS Height/Weight Height: 5 ft 10 in Weight: 121.1 kg Allergies Allergy/AdvReac Type Severity Reaction Status Date / Time No Known Allergies Allergy Unverified 02/27/19 04:42 Medications Home Medications Medication Instructions Recorded Confirmed Last Taken lorazepam 0.5 mg PO BID PRN 02/27/19 02/27/19 Unknown oxycodone-acetaminophen [Percocet] 1 - 2 tab PO Q4H PRN #15 tab 03/03/19 Unknown Active Medications Generic Name Dose Route Start Last Admin Trade Name Freq PRN Reason Stop Dose Admin Acetaminophen 650 mg 02/27/19 06:08 02/27/19 23:34 Tylenol PO 03/29/19 06:07 650 mg Q4H PRN Administration pain/fever Hydromorphone HCl 1 mg 02/27/19 08:24 03/03/19 10:48 Dilaudid IV 03/13/19 08:23 1 mg Q1H PRN Administration Pain Hydromorphone HCl 0.5 mg 02/27/19 08:24 03/03/19 02:30 Dilaudid IV 03/13/19 08:23 0.5 mg Q1H PRN Administration Pain Lactated Ringer's 1,000 mls @ 125 mls/hr 02/27/19 06:08 03/03/19 10:46 Lr IV 03/29/19 06:07 125 mls/hr .Q8H FAVIO Administration Ampicillin Sodium/Sulbactam 108 mls @ 200 mls/hr 03/01/19 12:00 03/03/19 12:01 Sodium 3,000 mg/ Sodium IV 03/11/19 11:59 Not Given Chloride Q6 FAVIO Protocol Lorazepam 0.5 mg 02/27/19 06:08 03/03/19 07:08 Ativan PO 03/29/19 06:07 0.5 mg BID PRN Administration Anxiety Ondansetron HCl 4 mg 02/27/19 06:08 03/01/19 16:54 Zofran IV 03/29/19 06:07 4 mg Q6H PRN Administration Nausea NPO Date Last Intake of Fluids: 03/02/19 Time Last Intake of Fluids: 18:00 Last Intake of Fluids Comment: Ice Chips throughout morning Date Last Intake of Solids: 03/02/19 Time Last Intake of Solids: 18:00 Past Medical History Medical History Left arm pain (Acute) Left shoulder pain (Acute) Anxiety Obesity Exercise / Class Metabolic Activity II 4-5 Yardwork/Stairs/Walk up hill Past Family History Family History Other Heart disease Myocardial infarction Past Anesthesia History No Hx of Anesthesia Complications and No Family Hx of Anesthesia Complications History of PONV No Hx of PONV and No Hx of Motion Sickness Social History Smoking Status: Current some day smoker tobacco type: cigarettes Smoking cigarettes per day: 0.25 Do You Dip or Chew Tobacco: No Hx Alcohol Use: Yes alcohol intake frequency: a few times a week substance use type: marijuana Substance Use Type Other:: occasional Last Used Substance: Unknown Review of Systems denies fever/cough/ colds/ chest pain/ SOB/ MARY ANN Constitutional: no fever and no chills Respiratory: no cough and no dyspnea denies MARY ANN Cardiovascular: no chest pain and no dyspnea on exertion Physical Exam Vital Signs Last Vital Signs Temp 37.1 C 03/03/19 12:06 Pulse 89 03/03/19 12:06 Resp 20 03/03/19 12:06 BP 168/99 H 03/03/19 12:06 Pulse Ox 97 03/03/19 12:06 ENMT Mouth: no TMJ abnormality and no dentition abnormality Thyromental Distance: > or= 3.5 Finger Breadths Mallampati Class: II Neck neck extension not limited Respiratory normal respiratory effort; no respiratory distress Auscultation: lungs clear to auscultation bilaterally Cardiovascular Rate/Rhythm: regular rate and regular rhythm Neurologic moves all extremities Psychiatric Orientation: alert and oriented x 3 Testing Laboratory Results 03/02/19 09:01 03/02/19 09:01 Electrocardiogram Date: 02/27/19 Normal sinus rhythm, rate 79 bpm Normal ECG When compared with ECG of 13-JAN-2014 08:15, No significant change was found Confirmed by Damaso Ferreira ([id number]) on 02/27/2019 9:45:24 PM :
--- NOTE | 2019-03-03 13:10 | Gastroenterology Progress Note ---
Date of Service March 03, 2019 Assessment & Plan (1) Cholelithiasis: Mr. Reeder is Post ERCP with sphincterotomy and sweeping of the bile duct for stones. He is Post procedure day #2. No evidence of choledochol cyst on ERCP. No suggestion of cholangitis. Pancreatitis clinically resolved. Plan: Per surgery - agree with going forward with cholecystectomy. GI will watch peripherally. Diet, discharge etc per surgery. The pt will need ERCP for stent removal in 6-8 weeks. A message was sent by Dr. Torres to our office to contact the pt to arrange. Supervising Physician Co-Signing Physician Notes Patient was in OR today and could not be evaluated by but I have discussed the patient's management with Marisela. Please refer to the nurse practitioner's note for the documented findings and plan of care. Subjective Pt feels, "much better," currently no abdominal pain. LFTs improved after ERCP on Sat 03/01. T bili max 2.3->1 yesterday, ALT 97->71, AST40->39. Alk Phos remains normal. Passing loose BMs. NPO today for cholecystectomy. Review of Systems Review of Systems: ROS: Gen: Denies weakness, fevers, weight loss Eyes: No eye redness, or pain, no recent vision changes Resp: No SOB, no cough Cardio: No palpitations/irregular beats, no chest pain GI: very minimal upper abdominal pain, no nausea/vomiting : Denies pain on urination, no dark urine. Skin: No jaundice, itching or new rashes Physical Exam Constitutional: WD/WN, vitals as above Eyes: PERRL, conjunctivae normal, anicteric sclerae ENMT: external ear and nose normal, oropharynx normal Neck: trachea midline, no thyromegaly Respiratory: normal respiratory effort, lungs clear to auscultation Cardiovascular: RRR, no murmur, no edema Gastrointestinal (Abdomen): normal bowel sounds, soft, nontender, no h epatosplenomegaly obese Skin: no rashes, warm and dry no jaundice Neurologic: PERRL, EOMI, accommodation nl, no face palsy, no dysarthria Psychiatric: A+Ox3, euthymic affect Lymphatic: no cervical or axillary lymphadenopathy Results & Data Vital Signs (Past 12 Hours) Vital Signs Temp Pulse Pulse Pulse Resp BP Pulse Ox 03/03/19 12:06 37.1 C 89 20 168/99 H 97 03/03/19 07:46 36.9 C 75 16 144/93 H 97 03/03/19 02:30 36.5 C 69 16 146/87 H 95
[2019-03-03] MEDS ORDERED: LABETALOL HCL IV 5 MG/ML 20ML IV ONE (13:15)
[2019-03-03] MEDS ORDERED: HydrALAZINE HCL 20 MG/ML VIAL ONE (13:25)
--- NOTE | 2019-03-03 13:46 | Operative Report ---
PG Post Operative Report Pre & Post Diagnosis Operation Date: 03/03/19 08:15 Pre-Op Diagnosis: Biliary Pancreatitis Post-Op Diagnosis: Biliary Pancreatitis I identified the patient and participated in the time-out.: Yes Procedure Operation Date: 03/03/19 08:15 Actual Procedures p Laparoscopic Cholecystectomy(Not Applicable) - Isaiah Sanchez DO, ALTAGRACIA Surgeon Isaiah Sanchez DO, ALTAGRACIA [employer] Manager Vern Escobedo Estimated Blood Loss 5 Findings Consistent with Post-Op Diagnosis Acute on chronic cholecystitis with large gallstones, critical view of safety obtained, no evidence of choledochocyst. Cystic duct and artery clipped and divided. Specimens Gallbladder Anesthesia Type General Complications none Disposition Accompanied Patient To Recovery: No Disposition: Recovery Room Indications 43-year-old male with gallstone pancreatitis and subsequent choledocholithiasis status post ERCP yesterday. There was some concern of a possible choledochal cyst within the cystic duct, however ERCP did not reveal this yesterday. Plan for laparoscopic cholecystectomy with possible cholangiogram. The risks of the procedure were discussed, all questions were answered, and the patient agreed to proceed with surgery as planned. Description of Procedure The patient was properly identified, consented, and taken to the operating room where he was placed in the supine position. General endotracheal anesthesia was induced. SCDs and a safety belt were placed. Preoperative antibiotics were administered. The patient's abdomen was prepped and draped in the standard sterile fashion. A surgical timeout was performed and all parties were in agreement that this was the correct patient and procedure to be performed and we continued as planned. An incision was made superior and to the left of the umbilicus overlying the rectus muscle and the Veress needle was inserted. Saline drop test confirmed entry into the peritoneum. The abdomen was insufflated with carbon dioxide which the patient tolerated without incident. The abdomen was then entered using the Optiview technique and a 5 mm trocar. The laparoscope was inserted and no damage from initial trocar or Veress needle placement was noted, no gross abnormalities were noted within the 4 quadrants of the abdomen. An 11 mm port was placed in the subxiphoid position and two 5 mm ports were then placed in the right subcostal position. The patient was placed in reverse Trendelenburg position and rotated towards the left. There was evidence of acute on chronic cholecystitis. The gallbladder appeared to be folded on itself and took a sharp angle as a transition to the infundibulum and cystic duct. This likely reflects what was seen on the MRCP. The dome of the gallbladder was retracted towards the left upper quadrant and the infundibulum was retracted toward the right lower quadrant revealing Calot's triangle. Peritoneal attachments were taken down with electrocautery and blunt dissection. The cystic duct and artery were circumferentially dissected. A window of safety was obtained showing the cystic duct entering the gallbladder with no aberrant structures noted. The cystic duct and artery were doubly clipped and divided. The gallbladder was then lifted off the gallbladder fossa with electrocautery. The gallbladder was placed in an Endo Catch bag and removed through the subxiphoid port site, which had to be extended both skin and fascial level to allow for the gallbladder to be removed due to the size of the stones. The right upper quadrant was irrigated and hemostasis was found to be good. 5 mm trochars were removed under direct visualization and the abdomen was allowed to collapse. The subxiphoid port site fascia was closed with 0 Vicryl suture using the James-Hector device. The wound was irrigated, and the skin of all ports was closed with 4-0 Monocryl subcuticular sutures. Dermabond was placed over the wounds. The patient was extubated in the operating room and taken to the PACU where he recovered without apparent incident. All sponge, instrument and needle counts were correct at the conclusion of the procedure. The patient tolerated the procedure well. The physician's printing assistant was present and scrubbed for the entirety of the case and was essential in positioning the patient, prepping and draping, retraction and exposure, driving the laparoscope, removal of the gallbladder, closure the incisions, and placement of the dressings. I attest to the content of the Intraoperative Record and any orders documented therein. Any exceptions are noted below.
[2019-03-03] MEDS ORDERED: KETOROLAC 30 MG/ML VIAL ONE (13:51)
[2019-03-03] MEDS ORDERED: ATROPINE SULFATE 0.1 MG/ML 10ML SYR IV PRN (14:13)
[2019-03-03] MEDS ORDERED: ONDANSETRON INJ 2 MG/ML 2 ML VIAL IV PRN (14:13)
[2019-03-03] MEDS ORDERED: ePHEDrine sulfate 50 MG/ML AMP IV PRN (14:13)
[2019-03-03] MEDS ORDERED: HYDROmorphone INJ 1 MG/ML SYRINGE IV PRN (14:13)
--- NOTE | 2019-03-03 14:16 | Anesthesiology Progress Note ---
Date of Service March 03, 2019 Anesthesia Post Procedure Vital Signs Vital Signs: Temp Pulse Pulse Pulse Resp BP Pulse Ox 03/03/19 14:05 73 17 147/75 H 98 03/03/19 13:55 36.0 C L 68 16 170/87 H 98 03/03/19 12:06 37.1 C 89 20 168/99 H 97 03/03/19 07:46 36.9 C 75 16 144/93 H 97 03/03/19 02:30 36.5 C 69 16 146/87 H 95 03/02/19 22:58 36.9 C 78 16 144/90 H 97 03/02/19 15:29 36.5 C 72 19 156/102 H 94 Pain Intensity Abdomen: Pain Intensity: 0 Bilateral Abdomen: Pain Intensity: 4 Transfer of Care Handoff Completed per policy Notes Mental Status: alert / awake / arousable and participated in evaluation Patient Amnestic to Procedure: Yes Nausea / Vomiting: adequately controlled Pain: adequately controlled Airway Patency, RR, SpO2: stable & adequate BP & HR: stable & adequate Hydration State: stable & adequate Anesthetic Complications: no major complications apparent and Pt Satisfied with anesthetic care
[2019-03-03] MEDS: fentaNYL citrate 100 MCG/2 ML VIAL IV PRN ×2 (14:18→14:23)
--- NOTE | 2019-03-03 17:42 | Hospitalist Progress Note ---
Date of Service March 03, 2019 Assessment & Plan (1) Pancreatitis: Biochemical and radiographic findings consistent with acute pancreatitis. No heavy alcohol consumption. Triglycerides normal. Found to have cholelithiasis on imaging, but no apparent choledocholithiasis. Most likely etiology gallstone pancreatitis. GI and General Surgery consulted. Symptoms fluctuating. Lipase improved. Started on IV ampicillin / sulbactam for possible cholecystitis. ERCP performed by Dr. Torres showed papillary stenosis, choledocholithiasis, no apparent choledochal cyst. Sphincterotomy, stone extraction, and stent placement performed. Laparoscopic cholecystectomy performed by Dr. Sanchez. Advance diet as tolerated. (2) Cholelithiasis: As discussed above. (3) Biliary cyst: Suspected on CT, US, MRCP, but not confirmed by ERCP or laparoscopy. (4) Elevated blood pressure reading: Episodic elevations of blood pressure probably secondary to discomfort and/or anxiety. Best to treat underlying pain first. IV enalapril or clonidine PRN for persistent / significant BP elevations. Blood pressures improved. Follow. (5) DVT prophylaxis: No anticoagulants at this time due to invasive procedures. SCDs. Ambulate. (6) Discharge planning issues: Anticipated discharge home. Family Medicine follow-up with Dr. Tavo Chairez. Subjective Recheck for cholelithiasis, cholecystitis, pancreatitis. Patient seen in their room around 1510. Laparoscopic cholecystectomy performed today. Having some postop discomfort. No further nausea or vomiting. Passing flatus and loose stools. No melena or hematochezia. No cough or SOB. Performing incentive spirometry. Review of Systems: Constitutional- no fever. Cardiac- no chest pain. Pulmonary- no cough or SOB. GI- as noted above. - good urine output. Otherwise, as noted above. Physical Exam Constitutional: no acute distress Eyes: + anicteric sclerae Respiratory: no respiratory distress Auscultation: lungs clear to auscultation bilaterally Cardiovascular: Rate/Rhythm: regular rate and regular rhythm Heart Sounds: no gallop, no murmur and no cardiac rub Vessels: no JVD Extremities: no calf tenderness and no edema Gastrointestinal (Abdomen): Inspection/Auscultation: normal bowel sounds; + abdomen abnormal to inspection (surgical incisions intact) and abdomen not distended Percussion/Palpation: abdomen soft Skin: no rashes, warm and dry Psychiatric: Orientation: alert and oriented x 3 Results & Data Vital Signs (Past 12 Hours) Vital Signs Temp Pulse Pulse Resp BP Pulse Ox 03/03/19 17:18 37.2 C 85 16 145/89 H 95 03/03/19 16:11 36.8 C 76 16 149/87 H 94 03/03/19 15:43 37.1 C 85 16 133/83 94 03/03/19 15:05 37.1 C 82 14 128/80 97 03/03/19 14:45 83 13 131/72 97 03/03/19 14:35 36.5 C 78 15 139/68 97 03/03/19 14:25 72 14 141/75 H 97 03/03/19 14:15 75 17 148/74 H 97 03/03/19 14:05 73 17 147/75 H 98 03/03/19 13:55 36.0 C L 68 16 170/87 H 98 03/03/19 12:06 37.1 C 89 20 168/99 H 97 03/03/19 07:46 36.9 C 75 16 144/93 H 97 Laboratory Results 03/02/19 09:01 03/02/19 09:01 (1) Pancreatitis Acute pancreatitis complication: unspecified Chronicity: acute Pancreatitis type: unspecified pancreatitis type Qualified Code(s): K85.90 - Acute pancreatitis without necrosis or infection, unspecified
[2019-03-04] MEDS: LACTATED RINGER'S 1,000 ML IV SCH (00:14)
[2019-03-04] MEDS: HYDROmorphone INJ 0.5 MG/0.5 ML SYR IV PRN (03:06)
[2019-03-04] MEDS: AMPICILLIN/SULBACTAM SOD 3,000 MG in 0.9 % SODIUM CHLORIDE 100 ML IV SCH ×2 (05:10→12:12)
[2019-03-04 05:24] LABS: Basophils # (auto) 0.01 K/uL (0-0.2); Basophils % (auto) 0.1 %; Hematocrit (blood only) 40.5 % (42-52); Hemoglobin 13.5 g/dL (14.0-18.0); Immature Granulocytes # (auto) 0.07 K/uL (0.00-0.02); Immature Granulocytes % (auto) 0.5 %; Lymphocytes # (auto) 0.88 K/uL (1.2-3.4); Lymphocytes % (auto) 6.5 %; Mean Corpuscular Hemoglobin 29.3 pg (25-34); Mean Corpuscular Hgb Conc 33.3 g/dL (32-36); Mean Corpuscular Volume 87.9 fL (80-100); Mean Platelet Volume 10.2 fL (7.4-10.4); Monocytes # (auto) 0.66 K/uL (0.11-0.59); Monocytes % (auto) 4.9 %; Neutrophils # (auto) 11.94 K/uL (1.4-6.5); Platelet Count 310 K/uL (130-400); RDW Coefficient of Variation 13.7 % (11.5-14.5); RDW Standard Deviation 43.9 fL (36.4-46.3); Red Blood Count 4.61 M/uL (4.7-6.1); White Blood Count 13.56 K/uL (4.8-10.8)
[2019-03-04 06:14] LABS: Albumin Level 3.1 gm/dl (3.4-5.0); BUN Creatinine Ratio 12.9 (10-20); Bilirubin Direct 0.2 mg/dl (0-0.2); Bilirubin,Total 0.6 mg/dl (0.2-1); Calcium 8.8 mg/dl (8.5-10.1); Creatinine Clr Calc Pharmacy 159.7 ml/min; Est GFR (African American) 127.9; Est GFR (Non-African American) 110.4; Total Protein 7.7 gm/dl (6.4-8.2)
[2019-03-04] MEDS ORDERED: OXYCODONE/ACETAMINOPHEN 5mg/325mg TAB PO PRN ×2 (07:43)
--- NOTE | 2019-03-04 07:49 | Surgery Progress Note ---
Date of Service March 04, 2019 Assessment & Plan (1) Cholelithiasis: POD#1 laparoscopic cholecystectomy Patient doing well post operatively Tbili: 0.6, AST: 77, ALT:108, WBC:13.5 Okay to advance diet as tolerates Add oral pain medication- percocet + bowel function Will add discharge instructions for patient to follow up in clinic within [address] Sanchez Supervising Physician Co-Signing Physician Notes Patient seen and examined, labs reviewed, agree with above. POD #1 lap moriah for choledocholithiasis and gallstone pancreatitis. Overall doing well, tolerated regular diet this morning. Some pain with coughing but otherwise feels much better than last week. Incisions healing well, some ecchymosis around the subxiphoid incision is to be expected. Bilirubin normal, labs unremarkable. Okay to discharge from surgery standpoint, follow-up in 2 weeks in general surgery clinic, call sooner with questions or concerns. Activity restrictions and wound care instructions reviewed. Subjective Patient feels well overall. Abdominal pain is well controlled outside of some expected incisional soreness. Tolerating a clear liquid diet. Had a formed BM t his AM. Physical Exam Physical Exam: awake/alert Gastrointestinal (Abdomen): Inspection/Auscultation: + abdominal surgical incision (c/d/i with dermabond overtop); abdomen not distended Percussion/Palpation: + abdomen tender (mildly fatoumata-incisionally) and abdomen soft Results & Data Vital Signs (Past 12 Hours) Vital Signs Temp Pulse Pulse Pulse Resp BP BP 03/04/19 07:00 37.2 C 70 18 120/77 03/04/19 03:43 36.5 C 63 18 128/80 03/03/19 23:20 36.8 C 74 19 146/81 H 03/03/19 20:10 36.7 C 74 16 112/74 Pulse Ox 03/04/19 07:00 95 03/04/19 03:43 96 03/03/19 23:20 94 03/03/19 20:10 93 PG Care Time/CCT Total # of Minutes Spent Total Time Spent with Patient: Total time spent is greater than 50% in coordination of care (as documented) at patient's floor/unit and/or counseling patient:
--- NOTE | 2019-03-04 08:19 | Anesthesiology Progress Note ---
Date of Service March 04, 2019 Anesthesia Post Procedure Vital Signs Vital Signs: Temp Pulse Pulse Pulse Resp BP BP 03/04/19 07:00 37.2 C 70 18 120/77 03/04/19 03:43 36.5 C 63 18 128/80 03/03/19 23:20 36.8 C 74 19 146/81 H 03/03/19 20:10 36.7 C 74 16 112/74 03/03/19 18:11 36.9 C 82 16 144/84 H 03/03/19 17:18 37.2 C 85 16 145/89 H 03/03/19 16:11 36.8 C 76 16 149/87 H 03/03/19 15:43 37.1 C 85 16 133/83 03/03/19 15:05 37.1 C 82 14 128/80 03/03/19 14:45 83 13 131/72 03/03/19 14:35 36.5 C 78 15 139/68 03/03/19 14:25 72 14 141/75 H 03/03/19 14:15 75 17 148/74 H 03/03/19 14:05 73 17 147/75 H 03/03/19 13:55 36.0 C L 68 16 170/87 H 03/03/19 12:06 37.1 C 89 20 168/99 H Pulse Ox 03/04/19 07:00 95 03/04/19 03:43 96 03/03/19 23:20 94 03/03/19 20:10 93 03/03/19 18:11 94 03/03/19 17:18 95 03/03/19 16:11 94 03/03/19 15:43 94 03/03/19 15:05 97 03/03/19 14:45 97 03/03/19 14:35 97 03/03/19 14:25 97 03/03/19 14:15 97 03/03/19 14:05 98 03/03/19 13:55 98 03/03/19 12:06 97 Pain Intensity Abdomen: Pain Intensity: 2 Bilateral Abdomen: Pain Intensity: 2 Notes Mental Status: alert / awake / arousable Patient Amnestic to Procedure: Yes Nausea / Vomiting: adequately controlled Pain: adequately controlled Airway Patency, RR, SpO2: stable & adequate BP & HR: stable & adequate Hydration State: stable & adequate Anesthetic Complications: no major complications apparent
[2019-03-04] MEDS ORDERED: Nursing to Pharmacy Communication ONE (12:11)
[2019-03-04] MEDS ORDERED: COUGH DROP (SUGAR FREE) LOZ 24 LOZ/1 BOX BUCCAL PRN (12:21)
--- NOTE | 2019-03-04 13:25 | Hospitalist Progress Note ---
Date of Service March 04, 2019 Assessment & Plan (1) Pancreatitis: Biochemical and radiographic findings consistent with acute pancreatitis. No heavy alcohol consumption. Triglycerides normal. Found to have cholelithiasis on imaging, but no apparent choledocholithiasis. Most likely etiology gallstone pancreatitis. GI and General Surgery consulted. Symptoms fluctuated, eventually improved. Lipase improved. Started on IV ampicillin / sulbactam for possible cholecystitis. ERCP performed by Dr. Torres showed papillary stenosis, choledocholithiasis, no apparent choledochal cyst. Sphincterotomy, stone extraction, and stent placement performed. Laparoscopic cholecystectomy performed by Dr. Sanchez 03/03. Diet advanced and tolerated. (2) Cholelithiasis: As discussed above. (3) Biliary cyst: Suspected on CT, US, MRCP, but not confirmed by ERCP or laparoscopy. (4) Elevated blood pressure reading: Episodic elevations of blood pressure probably secondary to discomfort and/or anxiety. Best to treat underlying pain first. IV enalapril or clonidine PRN for persistent / significant BP elevations. Blood pressures improved. BP afternoon of DC 149/82. Follow. (5) DVT prophylaxis: No anticoagulants due to invasive procedures. SCDs. Ambulate. (6) Discharge planning issues: Discharge home. Family Medicine follow-up with Dr. Tavo Chairez. Surgical follow-up with Dr. Sanchez. GI follow-up with [facility] for biliary stent removal. Subjective Doing well. No fever. Abdominal pain much better. Tolerating solid diet. No nausea or vomiting. Stools more formed. Doing incentive spirometry. Ambulating. Physical Exam Constitutional: no acute distress Eyes: + anicteric sclerae Respiratory: no respiratory distress Auscultation: lungs clear to auscultation bilaterally Cardiovascular: Rate/Rhythm: regular rate and regular rhythm Heart Sounds: no gallop, no murmur and no cardiac rub Vessels: no JVD Extremities: no calf tenderness and no edema Gastrointestinal (Abdomen): Inspection/Auscultation: normal bowel sounds; + abdomen abnormal to inspection (surgical incisions intact) and abdomen not distended Percussion/Palpation: abdomen soft Skin: no rashes, warm and dry Psychiatric: Orientation: alert and oriented x 3 Results & Data Vital Signs (Past 12 Hours) Vital Signs Temp Pulse Pulse Resp BP BP Pulse Ox 03/04/19 11:00 36.9 C 65 16 149/82 H 98 03/04/19 07:00 37.2 C 70 18 120/77 95 03/04/19 03:43 36.5 C 63 18 128/80 96 Laboratory Results 03/04/19 04:54 03/04/19 04:54 (1) Pancreatitis Acute pancreatitis complication: unspecified Chronicity: acute Pancreatitis type: unspecified pancreatitis type Qualified Code(s): K85.90 - Acute pancreatitis without necrosis or infection, unspecified
--- NOTE | 2019-03-05 16:25 | Discharge Summary ---
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 As per the ER Dissection studies were done was done which was unremarkable except showing gallstones and his lipase came elevated at 38,000. He received Dilaudid and 2 mg of IV Ativan. Currently, somewhat sleepy, but still complains of significant abdominal pain. Had 1 episode of vomiting in the ER. He says he is not a heavy drinker, drinks like 1 or 2 drinks probably once a week, sometimes not. Quit smoking a few years ago. Never had this kind of pain in the past. Hemodynamics are stable. Denies any headache, no dizziness, no blurred visions, no earache, no runny nose, no sore throat, no difficulty swallowing, no chest pain, was short of breath when he was having pain. No cough, no fever, no chills. Otherwise sleeps okay. No recent weight gain, weight loss. Normal bowel and bladder movements. No hematuria or burning micturition, no hematochezia. No swelling in the legs, no rash. Otherwise, is active. Principal Diagnosis gallstone pancreatitis cholelithiasis choledocholithiasis cholecystitis Discharge Data Allergies Allergy/AdvReac Type Severity Reaction Status Date / Time No Known Allergies Allergy Unverified 02/27/19 04:42 Consultations 02/27/19 04:33 ED Decision to Admit Stat 02/27/19 08:00 Consult Gastroenterology Routine Consult General Surgery Routine Procedures Performed Operation Date: 03/01/19 13:00 <No data on this case meets the specified criteria> Operation Date: 03/02/19 08:00 Actual Procedures p Endoscopic retrograde cholangiopancreatography (Not Applicable) - Kwasi Torres Operation Date: 03/03/19 08:15 Actual Procedures p Laparoscopic Cholecystectomy(Not Applicable) - Isaiah Sanchez DO, FACS Ordered Studies 02/27/19 04:41 CT angio chest dissec wo/w con Urgent 02/27/19 04:43 CT angio abd pelvis wo/w con Urgent 02/27/19 06:08 US gallbladder Urgent 02/27/19 10:09 MR MRCP Routine 03/02/19 07:05 FL ERCP biliary ductal Routine Hospital Course (1) Pancreatitis: Biochemical and radiographic findings consistent with acute pancreatitis. No heavy alcohol consumption. Triglycerides normal. Found to have cholelithiasis on imaging, but no apparent choledocholithiasis. Most likely etiology gallstone pancreatitis. GI and General Surgery consulted. Symptoms fluctuated, eventually improved. Lipase improved. Started on IV ampicillin / sulbactam for possible cholecystitis. ERCP performed by Dr. Torres showed papillary stenosis, choledocholithiasis, no apparent choledochal cyst. Sphincterotomy, stone extraction, and stent placement performed. Laparoscopic cholecystectomy performed by Dr. Sanchez 03/03. Pathology demonstrated cholelithiasis and cholecystitis. Diet advanced and tolerated. (2) Cholelithiasis: As discussed above. (3) Biliary cyst: Suspected on CT, US, MRCP, but not confirmed by ERCP or laparoscopy. (4) Elevated blood pressure reading: Episodic elevations of blood pressure probably secondary to discomfort and/or anxiety. Treated underlying pain first. Received IV enalapril or clonidine PRN for persistent / significant BP elevations. Blood pressures improved. BP afternoon of DC 149/82. Follow. (5) DVT prophylaxis: No anticoagulants due to invasive procedures. SCDs. Ambulate. (6) Discharge planning issues: Discharged to home. Family Medicine follow-up with Dr. Tavo Chairez. Surgical follow-up with Dr. Sanchez. GI follow-up with [facility] for biliary stent removal. Total Time Total Time Spent Total Time Spent (In Minutes): 40 Discharge Plan Discharge Items Patient Disposition: Home - Self-Care Reason For Visit: ABDOMINAL PAIN Discharge Diagnosis: pancreatitis gallstones Condition on Discharge: Good Activity: As commented below Lifting: No more than 10 pounds Bathing: No limitations Driving/Machine Use: Resume 3 days after discharge Non-emergency contact: Primary Care Provider, Hospitalist and Surgeon Call non-emergency contact if: you have any medication questions, your pain is not controlled, your temperature is above 101.5, your wound has increased redness and your wound has increased drainage Follow-up/Referrals: Isaiah Sanchez DO, FACS [Physician] - (Please call to schedule follow up in clinic within 2 weeks. You may call the office sooner if you have any questions/concerns.) Tavo Chairez DO [Primary Care Provider] - (03/07/2019 11:10 AM Tavo Chairez DO) Diet: Heart Healthy and Low Fat Addtl Attending Provider Instructions: SUMMARY OF TEST RESULTS: Lab tests and CT scan showed pancreatitis. Gallstones in gallbladder were also seen on CT, ultrasound, and MRI. ERCP showed gallstone in bile duct which was removed. There was a question of a bile duct cyst on some of the scans, but not confirmed on ERCP. RECOMMENDATIONS FOR FOLLOW-UP: Blood pressure was high at times, but improving by discharge. No need for blood pressure medications at this time. Please have Dr. Chairez follow your blood pressure. OTHER INSTRUCTIONS: Seek medical attention if you have: * temperature above 101 * chest pain or trouble breathing * abdominal pain, nausea, vomiting * diarrhea, dark stools or bloody stools * any unanswered questions or concerns Call [phone] if symptoms are severe. Please take good care of yourself. Call if you have any questions or problems. You can reach a [facility] hospitalist on duty at [facility] 24 hours a day by calling [phone]. My cell # is [phone]. Pending Studies at Discharge: Yes (pathology report from gallbladder surgery) Stand-Alone Forms: Call Back Authorization, My [facility], Work/School Release (Inpt), Smoking Cessation Medications and DC Order Prescriptions: New oxycodone-acetaminophen [Percocet] 5-325 mg tablet 1 - 2 tab PO Q4H PRN (Reason: pain, initial therapy, max 8 daily) Qty: 15 RF: 0 Continued lorazepam 0.5 mg tablet 0.5 mg PO BID PRN (Reason: Anxiety) RF: 0 Discharge Orders: Discharge Order (Routine); Ordered 03/04/19 Ordered By: Rigo Vincent Admission Data Admit Date/Time: 02/27/19 04:40 Attending Provider: Rigo Vincent Admit Provider: Frantz Ortiz Primary Care Provider: Tavo Chairez Other Providers: Frantz Ortiz ; Benedict Stinson ; Ariella King ; Devon Ba ; Shirlene Torres ; Willam Weber ; Jony Villarreal ; Joycelyn Saul ; Domingo Dominguez ; Diana Baltazar ; Clint Gonzales Jr ; Alejandrina England ; Anna Galan ; Marisela Osorio ; Kenneth Lynn ; Suni Le ; Kingsley Castillo ; Kwasi Torres ; Angel Keene ; Anali Morton ; [place] Lu ; Rod Serna ; Argenis Zelaya ; Orin Samuel ; Natalia Shukla ; Anna Allen ; Marycarmen Fried Other Interventions: Discharge Summary Assessment (RN) Last Done: 03/04/19 13:37 DC Date/Time DO NOT enter until pt leaves facility: 03/04/19 14:18
== END 2019-03-04 14:18 | disposition home or self-care (01) | DRG 417 ==
LOC: ED 01:43 → SUATTDRO 04:40 → 3W 04:40